=== PATIENT | female | born 1965 | race Hispanic/Latino ===

== ENCOUNTER 2019-01-26 10:12 | Inpatient (IN) | payer OTHER ==
--- OUTSIDE RECORDS SUMMARY | 2019-01-26 10:17 | XMS REPORT | Clinical Summary ---
:1965 Author Organization [facility] Address [address] [place] [address] Care Team Providers Name Role Phone Asked, No Pcp Primary Care Provider Unavailable Allergies No Known Allergies Medications Medication Sig Dispensed Refills Start End Date Status Date ferrous sulfate 325 Take 325 mg by 0 Active (65 FE) MG tablet mouth 2 (two) times a day. omeprazole Take 40 mg by 0 Active (PriLOSEC) 40 MG mouth nightly. capsule amoxicillin Take 500 mg by 0 Active (AMOXIL) 500 MG mouth every 8 capsule (eight) hours. metoclopramide Take 5 mg by 0 Active (REGLAN) 5 MG mouth 3 (three) tablet times a day. multivit-mins Take 1 tablet by 0 Active no.63/iron/folic mouth daily. (M-VIT ORAL) gabapentin Take 600 mg by 0 10/01/20 Discontinued (NEURONTIN) 300 mg mouth 3 (three) 18 capsule times a day. traMADol (ULTRAM) Take 50 mg by 0 10/01/20 Discontinued 50 mg tablet mouth every 8 18 (eight) hours as needed. insulin 70/30 NPH Inject 25 Units 0 10/01/20 Discontinued and regular human under the skin 2 18 (HumuLIN 70/30) 100 (two) times a unit/mL (70-30) day. injection insulin detemir Inject 25 Units 0 10/01/20 Discontinued U-100 (LEVEMIR) 100 under the skin 18 unit/mL injection nightly. acetaminophen Take 2 tablets 0 10/31/20 (TYLENOL) 325 MG (650 mg total) by 8 18 tablet mouth every 6 (six) hours as needed for mild pain for up to 30 days. gabapentin Take 1 capsule 90 capsule 0 10/31/20 (NEURONTIN) 300 mg (300 mg total) by 8 18 capsule mouth 3 (three) times a day for 30 days. metoprolol tartrate Take 1 tablet (50 60 tablet 0 10/31/20 (LOPRESSOR) 50 mg mg total) by 8 18 tablet mouth 2 (two) times a day for 30 days. NIFEdipine XL Take 1 tablet (60 60 tablet 0 10/31/20 (PROCARDIA XL) 60 mg total) by 8 18 MG 24 hr tablet mouth 2 (two) times a day for 30 days. polyethylene glycol Take 17 g by 30 packet 0 11/01/20 (MIRALAX) 17 gram mouth daily for 8 18 packet 30 days. sennosides-docusate Take 1 tablet by 30 tablet 0 10/31/20 sodium (SENOKOT-S) mouth nightly as 8 18 8.6-50 mg per needed for tablet constipation for up to 30 days. traMADol (ULTRAM) Take 1 tablet (50 21 tablet 0 10/08/20 50 mg tablet mg total) by 8 18 mouth every 8 (eight) hours as needed for severe pain for up to 7 days. ergocalciferol Take 1 capsule 4 capsule 0 11/07/19 (VITAMIN D2) 50,000 (50,000 Units 8 19 unit capsule total) by mouth once a week for 30 days. insulin detemir Inject 5 Units 1.5 mL 0 10/31/20 U-100 (LEVEMIR) 100 under the skin 8 18 unit/mL injection nightly for 30 days. furosemide (LASIX) Take 1 tablet (80 60 tablet 0 10/31/20 80 mg tablet mg total) by 8 18 mouth 2 (two) times a day for 30 days. Active Problems Problem Noted Date Chest pain 09/23/2018 EMEKA (acute kidney injury) 09/23/2018 Overview: Added automatically from request for surgery [id number] Encounters Date Type Specialty Care Team Description 09/29/2018 Anesthesia Event General Surgery Nohemi Walker CRNA 09/29/2018 Surgery General Surgery TRANSPOSITION OF OF ARTERIO VENOUS FISTULA LEFT ARM 09/23/2018 - Hospital Encounter General Internal JoseDat merritt Chest pain , unspecified type (Primary Dx); 10/01/2018 Rupert Partida MD EMEKA (acute kidney injury) (HCC); Siria Barnard Hyperkalemia; MD Elier Pleural effusion after 01/25/2018 Immunizations Name Dates Previously Given Next Due FLUCELVAX QUAD PF (0.5mL syringe) 10/01/2018 Social History Tobacco Use Types Packs/Day Years Used Date Former Smoker Cigarettes Quit: 09/03/2017 Smokeless Tobacco: Former User Alcohol Use Drinks/Week oz/Week Comments No Alcohol Habits Answer Date Recorded How often do you have a drink containing alcohol? Never 09/24/2018 How many drinks containing alcohol do you have on a typical Not asked day when you are drinking? How often do you have six or more drinks on one occasion? Not asked Sex Assigned at Date Recorded Not on file Job Start Date Occupation Industry Not on file Not on file Not on file Travel History Travel Start Travel End No recent travel history available. Last Filed Vital Signs Vital Sign Reading Time Taken Blood Pressure 118/58 10/01/2018 11:34 AM [employer] SAL[employer] REPRESENTATIVE Pulse 65 10/01/2018 11:34 AM [employer] REPRESENTATIVE Temperature 36 C (96.8 F) 10/01/2018 11:34 AM [employer] REPRESENTATIVE Respiratory Rate 16 10/01/2018 11:34 AM [employer] SAL[employer] REPRESENTATIVE Oxygen Saturation 91% 10/01/2018 11:34 AM [employer] REPRESENTATIVE Inhaled Oxygen Concentration - - Weight 73.8 kg (162 lb 12.8 oz) 10/01/2018 4:39 AM [employer] REPRESENTATIVE Height 154.9 cm (5' 1") 09/29/2018 7:56 AM [employer] REPRESENTATIVE Body Mass Index 30.76 10/01/2018 4:39 AM [employer] REPRESENTATIVE Plan of Treatment Health Maintenance Due Date Last Done Comments CERVICAL CANCER SCREENING 1985 BREAST CANCER SCREENING 2014 COLON CANCER SCREENING 2014 SHINGLES VACCINES (#1) 2014 INFLUENZA VACCINE Completed 10/01/2018, 10/16/2016 Implants Implanted Type Area Conservation Policy Analyst Device Shelf Model / Identifier Expiration Serial / Date Lot Catheter Dialysis Glidepath [id number] Symmetric Tip - [id number] Central N/ A: N/A BARD PERIPHERAL [id number] / Implanted: 09/26/2018 (Quantity not on file) Venous VASCULAR / Catheters Procedures Procedure Name Priority Date/Time Associated Comments Diagnosis POC GLUCOSE Routine 10/01/2018 11:30 Results for this AM [employer] REPRESENTATIVE procedure are in the results section. POC GLUCOSE Routine 09/30/2018 9:46 Results for this PM [employer] REPRESENTATIVE procedure are in the results section. POC GLUCOSE Routine 09/30/2018 4:51 Results for this PM [employer] REPRESENTATIVE procedure are in the results section. POC GLUCOSE Routine 09/30/2018 12:55 Results for this PM [employer] REPRESENTATIVE procedure are in the results section. HEMODIALYSIS Routine 09/30/2018 8:28 AM [employer] REPRESENTATIVE POC GLUCOSE Routine 09/30/2018 8:05 Results for this AM [employer] REPRESENTATIVE procedure are in the results section. POC GLUCOSE Routine 09/29/2018 9:13 Results for this PM [employer] REPRESENTATIVE procedure are in the results section. POC GLUCOSE Routine 09/29/2018 5:01 Results for this PM [employer] REPRESENTATIVE procedure are in the results section. POC GLUCOSE Routine 09/29/2018 12:41 Results for this PM [employer] SAL[employer] REPRESENTATIVE procedure are in the results section. ANESTHESIA PERIPHERAL Routine 09/29/2018 12:18 BLOCK PM [employer] REPRESENTATIVE Procedure Note - Annalee Fisher MD - 09/29/2018 12:18 PM [employer] REPRESENTATIVE Peripheral Block Performed by: Annalee Fisher MD Authorized by: Annalee Fisher MD Patient Location: Pre-op Start Time: 09/29/2018 8:14 AM End Time: 09/29/2018 8:27 AM Reason for Block: at surgeon's request Staff: Anesthesiologist: Annalee Fisher MD Resident/SENIOR BILLING CONSULTANT/AA: Nohemi Walker CRNA Performed by: Anesthesiologist Preprocedure: patient identified, IV checked, site and side verified, risks and benefits discussed, procedure verified, surgical consent complete, patient position confirmed, monitors and equipment checked, pre-op evaluation complete and site marked Time Out Performed: 09/29/2018 8:14 AM Peripheral Nerve Block: Patient Position: Right lateral decubitus Prep: ChloraPrep and patient draped Monitoring: Blood pressure monitoring, continuous pulse oximetry and heart rate Block Type: Supraclavicular Laterality: Left Injection Technique: Single injection Procedures: ultrasound guided Ultrasound documentation: Images saved on portable media Local Infiltration (See MAR for details): Ropivacaine Needle: Needle Type: Pajunk Needle Gauge: 21 G Needle Length: 10 cm Assessment: Injection Assessment: Visualized needle/local anesthetic surrounding nerve , visualized pertinent vascular structures and nerves, needle tip visualized at all times during injection of medication, no symptoms of intraneural/intravenous injection and intermittent aspiration during local anesthetic administration Paresthesia Pain: None Heart Rate Change: No Slow Fractionated Injection: Yes Block outcome: No apparent complications, patient comfortable and patient tolerated procedure well POC GLUCOSE Routine 09/29/2018 11:11 AM [employer] SAL[employer] REPRESENTATIVE ESTIMATED GFR Routine 09/29/2018 5:20 AM [employer] SAL[employer] REPRESENTATIVE MAGNESIUM LEVEL Routine 09/29/2018 5:20 AM [employer] SAL[employer] REPRESENTATIVE PHOSPHORUS LEVEL Routine 09/29/2018 5:20 AM [employer] SAL[employer] REPRESENTATIVE TYPE AND SCREEN Routine 09/29/2018 5:20 AM [employer] SAL[employer] REPRESENTATIVE IONIZED CALCIUM Routine 09/29/2018 5:20 AM [employer] SAL[employer] REPRESENTATIVE HC COMPLETE BLD COUNT W/AUTO Routine 09/29/2018 5:20 AM [employer] SAL[employer] REPRESENTATIVE Results for this DIFF procedure are in the results section. BASIC METABOLIC PANEL Routine 09/29/2018 5:20 AM [employer] SAL[employer] REPRESENTATIVE POC GLUCOSE Routine 09/28/2018 9:03 PM [employer] SAL[employer] REPRESENTATIVE POC GLUCOSE Routine 09/28/2018 4:34 PM [employer] SAL[employer] REPRESENTATIVE US ABDOMEN COMPLETE Routine 09/28/2018 4:23 PM [employer] SAL[employer] REPRESENTATIVE US VEIN MAPPING UPPER Routine 09/28/2018 4:23 PM [employer] SAL[employer] REPRESENTATIVE Results for this EXTREMITY BILATERAL procedure are in the results section. POC GLUCOSE Routine 09/28/2018 1:07 PM [employer] SAL[employer] REPRESENTATIVE HEMODIALYSIS Routine 09/28/2018 9:22 AM [employer] SAL[employer] REPRESENTATIVE POC GLUCOSE Routine 09/28/2018 7:27 AM [employer] REPRESENTATIVE ESTIMATED GFR Routine 09/28/2018 5:15 AM [employer] SAL[employer] REPRESENTATIVE HC COMPLETE BLD COUNT W/AUTO Routine 09/28/2018 5:15 AM [employer] SAL[employer] REPRESENTATIVE Results for this DIFF procedure are in the results section. BASIC METABOLIC PANEL Routine 09/28/2018 5:15 AM [employer] SAL[employer] REPRESENTATIVE POC GLUCOSE Routine 09/27/2018 8:11 PM [employer] SAL[employer] REPRESENTATIVE POC GLUCOSE Routine 09/27/2018 4:23 PM [employer] SAL[employer] REPRESENTATIVE STREP SCREEN CULTURE Routine 09/27/2018 2:40 PM [employer] SAL[employer] REPRESENTATIVE GROUP A STREP, RAPID ANTIGEN Routine 09/27/2018 2:40 PM [employer] REPRESENTATIVE POC GLUCOSE Routine 09/27/2018 11:37 AM [employer] REPRESENTATIVE HEMODIALYSIS Routine 09/27/2018 7:58 AM [employer] REPRESENTATIVE POC GLUCOSE Routine 09/27/2018 7:38 AM [employer] REPRESENTATIVE ESTIMATED GFR Routine 09/27/2018 5:30 AM [employer] SAL[employer] REPRESENTATIVE BASIC METABOLIC PANEL Routine 09/27/2018 5:30 AM [employer] SAL[employer] REPRESENTATIVE HC COMPLETE BLD COUNT W/AUTO Routine 09/27/2018 5:30 AM [employer] SAL[employer] REPRESENTATIVE Results for this DIFF procedure are in the results section. POC GLUCOSE Routine 09/26/2018 9:09 PM [employer] SAL[employer] REPRESENTATIVE POC GLUCOSE Routine 09/26/2018 5:25 PM [employer] SAL[employer] REPRESENTATIVE US GUIDED VASCULAR ACCESS Routine 09/26/2018 5:01 PM [employer] SAL[employer] REPRESENTATIVE IR TUNNELED DIALYSIS Routine 09/26/2018 5:01 PM [employer] REPRESENTATIVE Results for this CATHETER PLACEMENT procedure are in the results section. POC GLUCOSE Routine 09/26/2018 11:20 AM [employer] SAL[employer] REPRESENTATIVE POC GLUCOSE Routine 09/26/2018 7:51 AM [employer] SAL[employer] REPRESENTATIVE ESTIMATED GFR Routine 09/26/2018 6:00 AM [employer] SAL[employer] REPRESENTATIVE BASIC METABOLIC PANEL Routine 09/26/2018 6:00 AM [employer] REPRESENTATIVE HC COMPLETE BLD COUNT W/AUTO Routine 09/26/2018 6:00 AM [employer] REPRESENTATIVE Results for this DIFF procedure are in the results section. SEDIMENTATION RATE Routine 09/26/2018 6:00 AM [employer] SAL[employer] REPRESENTATIVE DNA AB SCREEN Routine 09/26/2018 6:00 AM [employer] REPRESENTATIVE HEMODIALYSIS Routine 09/26/2018 5:41 AM [employer] REPRESENTATIVE POC GLUCOSE Routine 09/25/2018 8:52 PM [employer] REPRESENTATIVE POC GLUCOSE Routine 09/25/2018 4:53 PM [employer] REPRESENTATIVE URINALYSIS SCREEN AND Routine 09/25/2018 3:52 PM [employer] REPRESENTATIVE Results for this MICROSCOPY, WITH REFLEX TO procedure are in the CULTURE results section. CREATININE LEVEL, URINE, Routine 09/25/2018 3:52 PM [employer] REPRESENTATIVE Results for this RANDOM procedure are in the results section. PROTEIN, URINE, RANDOM Routine 09/25/2018 3:52 PM [employer] REPRESENTATIVE URINE CULTURE Routine 09/25/2018 3:52 PM [employer] REPRESENTATIVE POC GLUCOSE Routine 09/25/2018 12:15 PM [employer] SAL[employer] REPRESENTATIVE NM MYOCARDIAL PERFUSION REST Routine 09/25/2018 11:55 AM [employer] REPRESENTATIVE Results for this STRESS 1 DAY procedure are in the results section. CV STRESS TEST NUCLEAR Routine 09/25/2018 11:55 AM [employer] REPRESENTATIVE Results for this CARDIO procedure are in the results section. POC GLUCOSE Routine 09/25/2018 8:55 AM [employer] SAL[employer] REPRESENTATIVE POC GLUCOSE Routine 09/25/2018 8:00 AM [employer] REPRESENTATIVE ESTIMATED GFR Routine 09/25/2018 5:45 AM [employer] REPRESENTATIVE HEPATITIS B CORE ANTIBODY Routine 09/25/2018 5:45 AM [employer] REPRESENTATIVE Results for this TOTAL procedure are in the results section. HEPATITIS B SURFACE ANTIBODY Routine 09/25/2018 5:45 AM [employer] SAL[employer] REPRESENTATIVE HEPATITIS B SURFACE ANTIGEN Routine 09/25/2018 5:45 AM [employer] SAL[employer] REPRESENTATIVE CBC WITH PLATELET AND Routine 09/25/2018 5:45 AM [employer] REPRESENTATIVE Results for this DIFFERENTIAL procedure are in the results section. BASIC METABOLIC PANEL Routine 09/25/2018 5:45 AM [employer] REPRESENTATIVE LIPID PANEL Routine 09/25/2018 5:45 AM [employer] SAL[employer] REPRESENTATIVE HEMOGLOBIN A1C Routine 09/25/2018 5:45 AM [employer] SAL[employer] REPRESENTATIVE POC GLUCOSE Routine 09/24/2018 9:35 PM [employer] REPRESENTATIVE POC GLUCOSE Routine 09/24/2018 4:47 PM [employer] SAL[employer] REPRESENTATIVE POC GLUCOSE Routine 09/24/2018 12:01 PM [employer] SAL[employer] REPRESENTATIVE ECHOCARDIOGRAM 2D COMPLETE W Routine 09/24/2018 11:33 AM [employer] SAL[employer] REPRESENTATIVE Results for this MMODE SPECTRAL COLOR DOPPLER procedure are in the (08023) results section. ESTIMATED GFR Routine 09/24/2018 10:15 AM [employer] SAL[employer] REPRESENTATIVE TOTAL IRON BINDING CAPACITY Routine 09/24/2018 10:15 AM [employer] SAL[employer] REPRESENTATIVE HC COMPLETE BLD COUNT W/AUTO Routine 09/24/2018 10:15 AM [employer] SAL[employer] REPRESENTATIVE Results for this DIFF procedure are in the results section. COMPREHENSIVE METABOLIC Routine 09/24/2018 10:15 AM [employer] REPRESENTATIVE Results for this PANEL procedure are in the results section. POC GLUCOSE Routine 09/24/2018 9:27 AM [employer] SAL[employer] REPRESENTATIVE TROPONIN Routine 09/24/2018 6:00 AM [employer] SAL[employer] REPRESENTATIVE TROPONIN Timed 09/24/2018 1:40 AM [employer] SAL[employer] REPRESENTATIVE US RENAL STAT 09/23/2018 10:21 PM [employer] SAL[employer] REPRESENTATIVE JENA TITER Routine 09/23/2018 10:05 PM [employer] REPRESENTATIVE ANTI-NEUTROPHILIC Routine 09/23/2018 10:05 PM [employer] REPRESENTATIVE Results for this CYTOPLASMIC ABS PANEL procedure are in the results section. C4 COMPLEMENT COMPONENT Routine 09/23/2018 10:05 PM [employer] REPRESENTATIVE C3 COMPLEMENT COMPONENT Routine 09/23/2018 10:05 PM [employer] REPRESENTATIVE JENA Routine 09/23/2018 10:05 PM [employer] SAL[employer] REPRESENTATIVE POTASSIUM LEVEL STAT 09/23/2018 10:05 PM [employer] SAL[employer] REPRESENTATIVE XR CHEST 2 VW STAT 09/23/2018 8:46 PM [employer] REPRESENTATIVE URINALYSIS SCREEN AND Routine 09/23/2018 8:33 PM [employer] REPRESENTATIVE Results for this MICROSCOPY, WITH REFLEX TO procedure are in the CULTURE results section. URINE CULTURE Routine 09/23/2018 8:20 PM [employer] SAL[employer] REPRESENTATIVE HCG QUALITATIVE, SERUM STAT 09/23/2018 8:15 PM [employer] REPRESENTATIVE Results for this SCREEN procedure are in the results section. ESTIMATED GFR STAT 09/23/2018 8:12 PM [employer] SAL[employer] REPRESENTATIVE B NATRIURETIC PEPTIDE STAT 09/23/2018 8:12 PM [employer] REPRESENTATIVE LIPASE LEVEL STAT 09/23/2018 8:12 PM [employer] REPRESENTATIVE TROPONIN STAT 09/23/2018 8:12 PM [employer] SAL[employer] REPRESENTATIVE CREATINE KINASE, TOTAL (CPK) STAT 09/23/2018 8:12 PM [employer] REPRESENTATIVE COMPREHENSIVE METABOLIC STAT 09/23/2018 8:12 PM [employer] REPRESENTATIVE Results for this PANEL procedure are in the results section. PARTIAL THROMBOPLASTIN TIME STAT 09/23/2018 8:12 PM [employer] REPRESENTATIVE Results for this (PTT) procedure are in the results section. PROTHROMBIN TIME WITH INR STAT 09/23/2018 8:12 PM [employer] REPRESENTATIVE HC COMPLETE BLD COUNT W/AUTO STAT 09/23/2018 8:12 PM [employer] REPRESENTATIVE Results for this DIFF procedure are in the results section. ECG ED PRELIMINARY Routine 09/23/2018 8:02 PM [employer] REPRESENTATIVE Results for this INTERPRETATION procedure are in the results section. ECG 12-LEAD STAT 09/23/2018 7:54 PM [employer] REPRESENTATIVE after 01/25/2018 Results POC glucose (10/01/2018 11:30 AM [employer] REPRESENTATIVE)Only the most recent of30 resultswithin the time period is included. POC glucose 149 (H) 65 - 99 mg/dL [facility] Comment: HOSPITAL RN Notified Meter ID: [id number] Treatment Manager: Juan Pablo Squires Performing Organization Address City/State/Zipcode Phone Number [facility] DEPARTMENT OF PATHOLOGY [address] [place] [address] AND GENOMIC MEDICINE [facility] [address] Estimated GFR (09/29/2018 5:20 AM [employer] REPRESENTATIVE)Only the most recent of7 resultswithin the time period is included. Estimated GFR 21 (A) mL/min/1.73 m2 [facility] Comment: [facility] CatergoryUnitsInterpretation G1 >=90 Normal or high G2 60-89Mildly decreased [id number] to moderately decreased Q3n11-73Vkopserlwg to severely decreased G4 15-29Severely decreased G5 <15Kidney failure The eGFR was calculated using the Chronic Kidney Disease Epidemiology Collaboration (CKD-EPI) equation. Interpretation is based on recommendations of the National Kidney Foundation-Kidney Disease Outcomes Quality Initiative (NKF-KDOQI) published in 2014. Specimen Plasma specimen Performing Organization Address City/State/Zipcode Phone Number [facility] DEPARTMENT OF PATHOLOGY [address] [place] [address] AND GENOMIC MEDICINE [facility] [address] [place] [address] HOSPITAL CBC with platelet and differential (09/29/2018 5:20 AM [employer] REPRESENTATIVE)Only the most recent of7 resultswithin the time period is included. WBC 8.2 4.5 - 11.0 k/uL [facility] RBC 2.81 (L) 4.20 - 5.50 m/uL [facility] HGB 8.0 (L) 12.0 - 16.0 g/dL [facility] HCT 25.9 (L) 37.0 - 47.0 % [facility] MCV 92.2 82.0 - 100.0 fL [facility] MCH 28.5 27.0 - 34.0 pg [facility] MCHC 30.9 (L) 31.0 - 37.0 g/dL [facility] RDW - SD 49.0 37.0 - 55.0 fL [facility] MPV 12.6 (H) 6.9 - 11.0 fL [facility] Platelet count 182 150 - 400 K/uL [facility] Nucleated RBC 0.40 /100 WBC [facility] Neutrophils 53.5 39.0 - 69.0 % [facility] Lymphocytes 32.8 25.0 - 45.0 % [facility] Monocytes 9.7 0.0 - 10.0 % [facility] Eosinophils 2.3 0.0 - 5.0 % [facility] Basophils 0.6 0.0 - 1.0 % [facility] Immature granulocytes 1.1 (H) 0.0 - 1.0 % [facility] Specimen Blood Performing Organization Address City/[facility]/Zipcode Phone Number [facility] DEPARTMENT OF PATHOLOGY [address] [place] [address] [place] [address] HOSPITAL Type and screen (09/29/2018 5:20 AM [employer] REPRESENTATIVE) ABO grouping A [facility] Rh type POS [facility] Antibody screen (gel) NEG [facility] Specimen Blood Performing Organization Address City/[facility]/Zipcode Phone Number [facility] DEPARTMENT OF PATHOLOGY [address] [place] [address] [place] [address] HOSPITAL Phosphorus level (09/29/2018 5:20 AM [employer] REPRESENTATIVE) Phosphorus 3.1 2.4 - 4.5 mg/dL [facility] Specimen Plasma specimen Performing Organization Address City/[facility]/Zipcode Phone Number [facility] DEPARTMENT OF PATHOLOGY [address] [place] [address] [place] [address] HOSPITAL Magnesium level (09/29/2018 5:20 AM [employer] REPRESENTATIVE) Magnesium 1.8 1.6 - 2.6 mg/dL [facility] Specimen Plasma specimen Performing Organization Address City/[facility]/Zipcode Phone Number [facility] DEPARTMENT OF PATHOLOGY [address] [place] [address] [place] [address] HOSPITAL Ionized calcium (09/29/2018 5:20 AM [employer] REPRESENTATIVE) pH 7.44 [facility] Ionized calcium 1.07 (L) 1.11 - 1.32 mmol/L [facility] Specimen Plasma specimen Performing Organization Address City/[facility]/Zipcode Phone Number [facility] DEPARTMENT OF PATHOLOGY [address] [place] [address] Basic metabolic panel (09/29/2018 5:20 AM [employer] REPRESENTATIVE)Only the most recent of5 resultswithin the time period is included. Sodium 142 135 - 148 mEq/L [facility] Potassium 4.1 3.5 - 5.0 mEq/L [facility] Chloride 104 98 - 112 mEq/L [facility] CO2 25 24 - 31 mEq/L [facility] Anion gap 13@ANIO 7 - 15 mEq/L [facility] BUN 21 (H) 6 - 20 mg/dL [facility] Creatinine 2.49 (H) 0.50 - 0.90 mg/dL [facility] Glucose 112 (H) 65 - 99 mg/dL [facility] Calcium 8.6 8.3 - 10.2 mg/dL [facility] Specimen Plasma specimen Performing Organization Address City/State/Zipcode Phone Number [facility] DEPARTMENT OF PATHOLOGY [address] [place] [address] AND GENOMIC MEDICINE [facility] [address] US Abdomen Complete (09/28/2018 4:23 PM [employer] REPRESENTATIVE) Narrative Performed At EXAM: US ABDOMEN COMPLETE RADIANT CLINICAL DATA:Abd painunspecified, RLQ pain TECHNIQUE: Sonographic evaluation of the abdomen was performed. COMPARISON: NONE. IMPRESSION: 1.Fatty liver. The liver is normal size. There are no discrete lesions. 2.The common bile duct is dilated measuring up to 11.6 mm. Possible post cholecystectomy change but limited visualization centrally and if concern for obstructing stone or mass, MRCP could provide more definitive evaluation. There is no evidence of intrahepatic biliary ductal dilation The common bile duct has normal caliber. 3.The portal vein is patent with normal hepatopetal flow. 4.Limited views of the pancreas are unremarkable. 5.The kidneys are normal size. The kidneys have normal echogenicity. Vascular flow is unremarkable. There is no evidence of hydronephrosis, perinephric fluid, mass or calculus. 6.The spleen has normal echogenicity. The spleen is normal size. 7.Small right pleural effusion. No evidence of ascites. 8.Visualized aorta and IVC are unremarkable. [id number] Procedure Note Interface, Radiology Results Incoming - 09/28/2018 4:43 PM LEATHER GOODS SALES REPRESENTATIVE EXAM: US ABDOMEN COMPLETE CLINICAL DATA: Abd pain unspecified, RLQ pain TECHNIQUE: Sonographic evaluation of the abdomen was performed. COMPARISON: NONE. IMPRESSION: 1. Fatty liver. The liver is normal size. There are no discrete lesions. 2. The common bile duct is dilated measuring up to 11.6 mm. Possible post cholecystectomy change but limited visualization centrally and if concern for obstructing stone or mass, MRCP could provide more definitive evaluation. There is no evidence of intrahepatic biliary ductal dilation The common bile duct has normal caliber. 3. The portal vein is patent with normal hepatopetal flow. 4. Limited views of the pancreas are unremarkable. 5. The kidneys are normal size. The kidneys have normal echogenicity. Vascular flow is unremarkable. There is no evidence of hydronephrosis, perinephric fluid, mass or calculus. 6. The spleen has normal echogenicity. The spleen is normal size. 7. Small right pleural effusion. No evidence of ascites. 8. Visualized aorta and IVC are unremarkable. [id number] Performing Organization Address City/State/Zipcode Phone Number [facility] [address] [place] [address] Us vein mapping upper extremity (09/28/2018 4:23 PM LEATHER GOODS SALES REPRESENTATIVE) Narrative Performed At [facility] EXAM: Bilateral upper extremity vein mapping HISTORY: AV fistula planning TECHNIQUE: Bilateral upper extremity venous duplex ultrasound with color flow and Doppler imaging obtained for vein mapping. IMPRESSION: 1.There is no deep venous or superficial vein thrombus in the upper extremities. The right and left internal jugular, subclavian, axillary, brachial, radial, ulnar, basilic, and cephalic veins are patent with no visible thrombus. 2.Bilateral upper extremity vein mapping was performed and was the following: RIGHT ARM--Size(mm)--DEPTH FROM SKIN(mm) Above the antecubital fossa: Brachial at antecubital:3 mm -- 5 mm Median antecubital:2 mm -- 6 mm Cephalic antecubital:3 mm -- 7 mm Cephalic mid arm:3 mm -- 7 mm Cephalic proximal:4 mm -- 5 mm Basilic antecubital:4 mm -- 11 mm Basilic mid arm:5 mm -- 18 mm Basilic proximal:5 mm -- 19 mm Below antecubital fossa: Cephalic wrist:2 mm -- 3 mm Cephalic mid forearm:2 mm -- 7 mm Basilic wrist:1 mm -- 1 mm Basilic mid forearm:2 mm -- 9 mm Arteries--Size(mm): Radial artery:3 mm Ulnar artery:2 mm Brachial artery:2 mm LEFT ARM--Size(mm)--DEPTH FROM SKIN(mm) Above the antecubital fossa: Brachial at antecubital:3 mm -- 10 mm Median antecubital:2 mm -- 4 mm Cephalic antecubital:3 mm -- 2 mm Cephalic mid arm:2 mm -- 4 mm Cephalic proximal:2 mm -- 8 mm Basilic antecubital:4 mm -- 11 mm Basilic mid arm:5 mm -- 14 mm Basilic proximal:4 mm -- 18 mm Below antecubital fossa: Cephalic wrist:3 mm -- 4 mm Cephalic mid forearm:2 mm -- 4 mm Basilic wrist:2 mm -- 2 mm Basilic mid forearm:2 mm -- 6 mm Arteries--Size(mm): Radial artery:5 mm Ulnar artery:1 mm Brachial artery:2 mm [id number] Procedure Note Hm Interface, Radiology Results Incoming - 09/28/2018 4:50 PM LEATHER GOODS SALES REPRESENTATIVE EXAM: Bilateral upper extremity vein mapping HISTORY: AV fistula planning TECHNIQUE: Bilateral upper extremity venous duplex ultrasound with color flow and Doppler imaging obtained for vein mapping. IMPRESSION: 1. There is no deep venous or superficial vein thrombus in the upper extremities. The right and left internal jugular, subclavian, axillary, brachial , radial, ulnar, basilic, and cephalic veins are patent with no visible thrombus. 2. Bilateral upper extremity vein mapping was performed and was the following: RIGHT ARM--Size(mm)--DEPTH FROM SKIN(mm) Above the antecubital fossa: Brachial at antecubital: 3 mm -- 5 mm Median antecubital: 2 mm -- 6 mm Cephalic antecubital: 3 mm -- 7 mm Cephalic mid arm: 3 mm -- 7 mm Cephalic proximal: 4 mm -- 5 mm Basilic antecubital: 4 mm -- 11 mm Basilic mid arm: 5 mm -- 18 mm Basilic proximal: 5 mm -- 19 mm Below antecubital fossa: Cephalic wrist: 2 mm -- 3 mm Cephalic mid forearm: 2 mm -- 7 mm Basilic wrist: 1 mm -- 1 mm Basilic mid forearm: 2 mm -- 9 mm Arteries--Size(mm): Radial artery: 3 mm Ulnar artery: 2 mm Brachial artery: 2 mm LEFT ARM--Size(mm)--DEPTH FROM SKIN(mm) Above the antecubital fossa: Brachial at antecubital: 3 mm -- 10 mm Median antecubital: 2 mm -- 4 mm Cephalic antecubital: 3 mm -- 2 mm Cephalic mid arm: 2 mm -- 4 mm Cephalic proximal: 2 mm -- 8 mm Basilic antecubital: 4 mm -- 11 mm Basilic mid arm: 5 mm -- 14 mm Basilic proximal: 4 mm -- 18 mm Below antecubital fossa: Cephalic wrist: 3 mm -- 4 mm Cephalic mid forearm: 2 mm -- 4 mm Basilic wrist: 2 mm -- 2 mm Basilic mid forearm: 2 mm -- 6 mm Arteries--Size(mm): Radial artery: 5 mm Ulnar artery: 1 mm Brachial artery: 2 mm [facility]-[id number] Performing Organization Address City/[facility]/Zipcode Phone Number [facility] [address] [place] [address] Group A strep, rapid antigen (09/27/2018 2:40 PM LEATHER GOODS SALES REPRESENTATIVE) Group A strep, rapid Negative for Group A Streptococcus antigen. [facility] SUGAR antigen result Comment: [facility]IN [facility] Specimen Information Specimen Source: Throat Specimen Site: Not otherwise specified Specimen Throat - Not otherwise specified Performing Organization Address City/[facility]/Zipcode Phone Number [facility] DEPARTMENT OF PATHOLOGY [address] [place] [address] AND [facility] [id number] [place] [address] Strep screen culture (09/27/2018 2:40 PM LEATHER GOODS SALES REPRESENTATIVE) Strep screen culture No beta hemolytic Streptococci isolated [facility] isolate Comment: HOSPITAL Specimen Information Specimen Source: Throat Specimen Site: Not otherwise specified Specimen Throat - Not otherwise specified Performing Organization Address City/[facility]/Zipcode Phone Number [facility] DEPARTMENT OF PATHOLOGY AND [address] [place] [address] [address] IR Tunneled Dialysis Catheter Placement (09/26/2018 5:01 PM LEATHER GOODS SALES REPRESENTATIVE) Narrative Performed At [facility] Procedure: Right internal jugular vein tunnel dialysis catheter placement. Performing Radiologist: Fidel Cain MD Assistants: None Anesthesia Type: Under physician supervision, Versed and fentanyl were administered intravenously for moderate sedation. Pulse oximetry, heart rate, and blood pressure were continuously monitored by independent trained observer.The physician spent 10 minutes [id number] sedation time with the patient.Lidocaine 1% was used for local anesthesia. Preprocedure Diagnosis: End-stage renal disease Post Procedure Diagnosis: Same Technique: Written informed consent was obtained prior to the procedure. The patient was brought to the fluoroscopy suite and placed supine on the table. The right neck and upper chest were prepped and draped in usual sterile fashion. All elements of maximal sterile barrier technique were utilized. 1% lidocaine was used for local anesthesia. Under real-time ultrasound guidance, a 21-gauge micropuncture needle was advanced into the right internal jugular vein.Through the needle, a 0.018 inch mandril wire was advanced centrally. The needle was exchanged for a 5 Trinidadian micropuncture introducer sheath over the wire. The wire and inner dilator were removed. A 0.035 inch Amplatz wire was advanced through the sheath into the inferior vena cava. The right upper chest was then anesthetized using 1% lidocaine with epinephrine. A small incision was made. A 23 cm (tip to cuff) GlidePath tunneled dialysis catheter was then tunneled from the incision to the venotomy site. The catheter was placed into the superior vena cava through a peel-away sheath. The catheter tip was placed over the right atrium under real time fluoroscopic visualization.All ports were tested and demonstrated adequate flow. The catheter was packed with heparin and secured to the skin using suture.A sterile occlusive dressing was applied. Radiation Dose: Ka,r=4.8 mGy Complications: None Specimens Removed: None Estimated Blood Loss: Less than 1 mL Blood/Blood Products Administered: None Grafts/Implants: As described in the above report. Impression: 1. Ultrasound shows an anechoic and compressible right internal jugular vein. 2. Uncomplicated right tunneled dialysis catheter placement. The new catheter is ready for use. [id number] Procedure Note Interface, Radiology Results Incoming - 09/27/2018 12:49 PM LEATHER GOODS SALES REPRESENTATIVE Procedure: Right internal jugular vein tunnel dialysis catheter placement. Performing Radiologist: Fidel Cain MD Assistants: None Anesthesia Type: Under physician supervision, Versed and fentanyl were administered intravenously for moderate sedation. Pulse oximetry, heart rate, and blood pressure were continuously monitored by independent trained observer. The physician spent 10 minutes brqa-tv-huhs sedation time with the patient. Lidocaine 1% was used for local anesthesia. Preprocedure Diagnosis: End-stage renal disease Post Procedure Diagnosis: Same Technique: Written informed consent was obtained prior to the procedure. The patient was brought to the fluoroscopy suite and placed supine on the table. The right neck and upper chest were prepped and draped in usual sterile fashion. All elements of maximal sterile barrier technique were utilized. 1% lidocaine was used for local anesthesia. Under real-time ultrasound guidance, a 21-gauge micropuncture needle was advanced into the right internal jugular vein. Through the needle, a 0.018 inch mandril wire was advanced centrally. The needle was exchanged for a 5 Trinidadian micropuncture introducer sheath over the wire. The wire and inner dilator were removed. A 0.035 inch Amplatz wire was advanced through the sheath into the inferior vena cava. The right upper chest was then anesthetized using 1% lidocaine with epinephrine. A small incision was made. A 23 cm (tip to cuff) GlidePath tunneled dialysis catheter was then tunneled from the incision to the venotomy site. The catheter was placed into the superior vena cava through a peel-away sheath. The catheter tip was placed over the right atrium under real time fluoroscopic visualization. All ports were tested and demonstrated adequate flow. The catheter was packed with heparin and secured to the skin using suture. A sterile occlusive dressing was applied. Radiation Dose: Ka,r=4.8 mGy Complications: None Specimens Removed: None Estimated Blood Loss: Less than 1 mL Blood/Blood Products Administered: None Grafts/Implants: As described in the above report. Impression: 1. Ultrasound shows an anechoic and compressible right internal jugular vein. 2. Uncomplicated right tunneled dialysis catheter placement. The new catheter is ready for use. [id number] Performing Organization Address City/State/Zipcode Phone Number [facility] [address] [place] [address] US Guided Vascular Access (09/26/2018 5:01 PM LEATHER GOODS SALES REPRESENTATIVE) Narrative Performed At [facility] Procedure: Right internal jugular vein tunnel dialysis catheter placement. Performing Radiologist: Fidel Cain MD Assistants: None Anesthesia Type: Under physician supervision, Versed and fentanyl were administered intravenously for moderate sedation. Pulse oximetry, heart rate, and blood pressure were continuously monitored by independent trained observer.The physician spent 10 minutes [id number] sedation time with the patient.Lidocaine 1% was used for local anesthesia. Preprocedure Diagnosis: End-stage renal disease Post Procedure Diagnosis: Same Technique: Written informed consent was obtained prior to the procedure. The patient was brought to the fluoroscopy suite and placed supine on the table. The right neck and upper chest were prepped and draped in usual sterile fashion. All elements of maximal sterile barrier technique were utilized. 1% lidocaine was used for local anesthesia. Under real-time ultrasound guidance, a 21-gauge micropuncture needle was advanced into the right internal jugular vein.Through the needle, a 0.018 inch mandril wire was advanced centrally. The needle was exchanged for a 5 Trinidadian micropuncture introducer sheath over the wire. The wire and inner dilator were removed. A 0.035 inch Amplatz wire was advanced through the sheath into the inferior vena cava. The right upper chest was then anesthetized using 1% lidocaine with epinephrine. A small incision was made. A 23 cm (tip to cuff) GlidePath tunneled dialysis catheter was then tunneled from the incision to the venotomy site. The catheter was placed into the superior vena cava through a peel-away sheath. The catheter tip was placed over the right atrium under real time fluoroscopic visualization.All ports were tested and demonstrated adequate flow. The catheter was packed with heparin and secured to the skin using suture.A sterile occlusive dressing was applied. Radiation Dose: Ka,r=4.8 mGy Complications: None Specimens Removed: None Estimated Blood Loss: Less than 1 mL Blood/Blood Products Administered: None Grafts/Implants: As described in the above report. Impression: 1. Ultrasound shows an anechoic and compressible right internal jugular vein. 2. Uncomplicated right tunneled dialysis catheter placement. The new catheter is ready for use. [id number] Procedure Note [facility], Radiology Results Incoming - 09/27/2018 12:50 PM LEATHER GOODS SALES REPRESENTATIVE Procedure: Right internal jugular vein tunnel dialysis catheter placement. Performing Radiologist: Fidel Cain MD Assistants: None Anesthesia Type: Under physician supervision, Versed and fentanyl were administered intravenously for moderate sedation. Pulse oximetry, heart rate, and blood pressure were continuously monitored by independent trained observer. The physician spent 10 minutes rbcm-ty-elor sedation time with the patient. Lidocaine 1% was used for local anesthesia. Preprocedure Diagnosis: End-stage renal disease Post Procedure Diagnosis: Same Technique: Written informed consent was obtained prior to the procedure. The patient was brought to the fluoroscopy suite and placed supine on the table. The right neck and upper chest were prepped and draped in usual sterile fashion. All elements of maximal sterile barrier technique were utilized. 1% lidocaine was used for local anesthesia. Under real-time ultrasound guidance, a 21-gauge micropuncture needle was advanced into the right internal jugular vein. Through the needle, a 0.018 inch mandril wire was advanced centrally. The needle was exchanged for a 5 Trinidadian micropuncture introducer sheath over the wire. The wire and inner dilator were removed. A 0.035 inch Amplatz wire was advanced through the sheath into the inferior vena cava. The right upper chest was then anesthetized using 1% lidocaine with epinephrine. A small incision was made. A 23 cm (tip to cuff) GlidePath tunneled dialysis catheter was then tunneled from the incision to the venotomy site. The catheter was placed into the superior vena cava through a peel-away sheath. The catheter tip was placed over the right atrium under real time fluoroscopic visualization. All ports were tested and demonstrated adequate flow. The catheter was packed with heparin and secured to the skin using suture. A sterile occlusive dressing was applied. Radiation Dose: Ka,r=4.8 mGy Complications: None Specimens Removed: None Estimated Blood Loss: Less than 1 mL Blood/Blood Products Administered: None Grafts/Implants: As described in the above report. Impression: 1. Ultrasound shows an anechoic and compressible right internal jugular vein. 2. Uncomplicated right tunneled dialysis catheter placement. The new catheter is ready for use. [id number] Performing Organization Address City/State/Zipcode Phone Number [facility] [address] [place] [address] DNA Ab screen (09/26/2018 6:00 AM LEATHER GOODS SALES REPRESENTATIVE) DNA Ab screen Not Detected Not-Detected [facility] Specimen Blood Performing Organization Address City/[facility] Phone Number [facility] DEPARTMENT OF PATHOLOGY AND [address] [place] [address] [facility] [address] [place] [address] Sedimentation rate (09/26/2018 6:00 AM LEATHER GOODS SALES REPRESENTATIVE) Sedimentation rate 88 (H) 0 - 20 mm/hr [facility] Specimen Blood Performing Organization Address [facility] Phone Number [facility] DEPARTMENT OF PATHOLOGY [address] [place] [address] AND [facility] [id number] [place] [address] HOSPITAL Urinalysis screen and microscopy, with reflex to culture (09/25/2018 3:52 PM LEATHER GOODS SALES REPRESENTATIVE)Only the most recent of2 resultswithin the time period is included. Specimen site Clean catch [facility] Color, UA Yellow [facility] Appearance, UA Clear [facility] Specific gravity, UA 1.012 1.001 - 1.030 [facility] pH, UA 6.0 5.0 - 9.0 [facility] Protein, UA 3+ (A) Negative [facility] Glucose, UA 1+ (A) Negative [facility] Ketones, UA Negative Negative [facility] Bilirubin, UA Negative Negative [facility] Blood, UA Negative Negative [facility] Nitrite, UA Negative Negative [facility] Urobilinogen, UA <2.0 <2.0 E.U./dL [facility] Leukocyte esterase, UA Negative Negative [facility] Epithelial cells, UA <1 /HPF [facility] Round epithelial cells, UA <1 0 - 5 /HPF [facility] WBC, UA 2 0 - 4 /HPF [facility] RBC, UA <1 0 - 5 /HPF [facility] Bacteria, UA None seen None seen [facility] Yeast, UA None seen [facility] Yeast with pseudohyphae, UA None seen [facility] Hyaline casts, UA 0-2 /LPF [facility] Specimen Urine Performing Organization Address City/[facility]/Zipcode Phone Number [facility] DEPARTMENT OF PATHOLOGY [id number] [place] [address] [place] [address] HOSPITAL Protein, urine, random (09/25/2018 3:52 PM LEATHER GOODS SALES REPRESENTATIVE) Total volume, urine 60 mL [facility] Urine protein concentration 506 mg/dL [facility] Urine protein excretion 304 mg/vol [facility] Specimen Urine Performing Organization Address City/State/Zipcode Phone Number [facility] DEPARTMENT OF PATHOLOGY [address] [place] [address] [address] Creatinine level, urine, random (09/25/2018 3:52 PM LEATHER GOODS SALES REPRESENTATIVE) Total volume, urine 60 mL [facility] Urine creatinine concentration 71 mg/dL [facility] Urine creatinine excretion 43 mg/vol [facility] Specimen Urine Performing Organization Address City/[facility] Phone Number [facility] DEPARTMENT OF PATHOLOGY [address] [place] [address] Urine culture (09/25/2018 3:52 PM LEATHER GOODS SALES REPRESENTATIVE)Only the most recent of2 resultswithin the time period is included. Urine culture SEE COMMENTComment: Bacteriuria [facility] screen negative. HOSPITAL Performing Organization Address City/State/[facility] Phone Number [facility] DEPARTMENT OF PATHOLOGY [address] [place] [address] Cv stress test (09/25/2018 11:55 AM LEATHER GOODS SALES REPRESENTATIVE) Resting HR 75 [facility] Resting BP 136 [facility] Peak MET Achieved 1.0 H MUSE Protocol Name Regadenoson [facility] Time in Exercise Phase 00:01:00 [facility] Max Systolic BP 136 [facility] Max Diastolic BP 79 [facility] Max Heart Rate 81 [facility] Max Predicted Heart Rate 166 [facility] M[facility] Target HR Formula (220 - Age)*85% H MUSE Test Indication ANGINA H MUSE Arrhy During Ex none H MUSE ECG Interp Before EX Normal H M[facility] ECG Interp During Ex none [facility] Ex Summary Comment Normal stress test [facility] Chest Pain Statement none [facility] Reason for Termination COMPLETION OF PROTOCOL [facility] Stress Test Impression Waveform interpreted in report [facility] associated with image study. No interpretation is provided as part of this Stress ECG report.--Electronically Signed By Zaire Pulido MD ([id number]), manager editorial Gasper Ramirez ([id number]) on 09/25/2018 10:54:42 AM Target HR 166.00 bpm [facility] Narrative Performed At Performing Organization Address City/[facility] Phone Number [facility] [address] [place] [address] Nm myocardial perfusion (09/25/2018 11:55 AM LEATHER GOODS SALES REPRESENTATIVE) Target HR 166.00 bpm [facility] Resting HR 75 BPM [facility] Resting BP 136/79 mmHg [facility] Post Peak HR 81 bpm [facility] Percent HR 48.80 % [facility] Post Peak BP 136/79 mmHg [facility] Exercise duration (min) 1 min [facility] Narrative Performed At [facility] 1.Normal coronary perfusion. 2.Normal left ventricular systolic function with normal left ventricular wall motion. 3.Left ventricular ejection is 61 % based on gated stress images. 4.This study result indicates a low risk of cardiac , or nonfatal infarction, over the ensuing year. Performing Organization Address City/[facility] Phone Number [facility] [address] [place] [address] Hepatitis B core antibody total (09/25/2018 5:45 AM LEATHER GOODS SALES REPRESENTATIVE) Hepatitis B core total Ab Non-reactive Non-reactive [facility] Specimen Blood Performing Organization Address City/[facility] Phone Number [facility] DEPARTMENT OF PATHOLOGY AND [address] [place] [address] [address] Hepatitis B surface antibody (09/25/2018 5:45 AM LEATHER GOODS SALES REPRESENTATIVE) Hepatitis B surface Ab Non-reactive Non-reactive [facility] Specimen Blood Performing Organization Address City/[facility]/Zipcode Phone Number [facility] DEPARTMENT OF PATHOLOGY AND [address] [place] [address] [address] Hepatitis B surface antigen (09/25/2018 5:45 AM LEATHER GOODS SALES REPRESENTATIVE) Hepatitis B surface Ag Non-reactive Non-reactive [facility] Specimen Blood Performing Organization Address City/[facility]/Zipcode Phone Number [facility] DEPARTMENT OF PATHOLOGY [id number] [place] [address] Hemoglobin A1c (09/25/2018 5:45 AM LEATHER GOODS SALES REPRESENTATIVE) Hemoglobin A1C 6.5 (H) 4.0 - 6.0 % [facility] Comment: HOSPITAL Less than 6% - Goal of therapy for Type II Diabetes Less than 7%-Goal of therapy for Type I Diabetes Less than 8%-Acceptable control for Type I or Type II Diabetes Greater than 8%-Unacceptable control; action indicated. ([id number]) Specimen Blood Performing Organization Address City/[facility]/Zipcode Phone Number [facility] DEPARTMENT OF PATHOLOGY [phone] [place] [address] Lipid panel (09/25/2018 5:45 AM LEATHER GOODS SALES REPRESENTATIVE) Cholesterol 147 0 - 199 mg/dL [facility] Triglycerides 117 0 - 149 mg/dL [facility] HDL cholesterol 38 (L) 40 - 99,999 [facility] mg/dL [facility] LDL cholesterol 96 0 - 99 mg/dL [facility] Lipid panel See below [facility] interpretation Comment: [facility] Total Cholesterol (mg/dL) <200 Desirable 890-378Hvgcvrybyo-vqae >=240High Triglycerides (mg/dL) <150 Normal 764-743Hmsnlcpvxx-hfqr 200-499High >=500Very high HDL Cholesterol (mg/dL) <40Low (male) <50Low (female) LDL Cholesterol (mg/dL) <100 Optimal 100-129Near or above optimal 205-363Jyltjvmmmf-ftqk 160-189High >=190Very high Risk Catergories that modify LDL goals. Risk CatergoriesLDL goal (mg/dL) CHD and CHD risk equivalent<100 (10-year risk >20%) Multiple (2+) risk factors <130 (10-year risk=<20%) 0-1 risk factors <160 (<10-year risk) Defining levels of lipids in metabolic syndrome Triglycerides>=150 mg/dL HDL Cholesterol Men<40 mg/dL Women<50 mg/dL Non-HDL cholesterol is a second target for therapy in persons with high triglycerides (>=200 mg/dL) Specimen Plasma specimen Performing Organization Address City/State/Zipcode Phone Number [facility] DEPARTMENT OF PATHOLOGY [address] [place] [address] AND GENOMIC MEDICINE [facility] [address] Echocardiogram complete w contrast and 3D if needed (09/24/2018 11:33 AM [employer] REPRESENTATIVE) AoV Area, Vmax 2.68 cm2 [facility] AoV Area, VTI 2.56 cm2 [facility] AoV Mean PG 6.00 mmHg [facility] AoV Peak PG 9.61 mmHg [facility] AoV Vmax 1.55 m/s [facility] AoV VTI 0.33 m [facility] IVS,d 1.04 cm [facility] IVS/LVPW,2D 1.06 [facility] Left Atrium Dimension Anterior 3.80 cm [facility] LV,d 4.81 cm [facility] LV EF,2D 73.23 % [facility] LV,s 3.10 cm [facility] LVOT area 3.14 cm2 [facility] LVOT Diam,S 2.00 cm [facility] LVOT Vmax 1.32 m/s [facility] LVOT VTI 0.27 m [facility] LVPWD,d 0.98 cm [facility] MV E A ratio 0.81 [facility] E wave decelartion time 169.00 msec [facility] MV Peak A Landon 1.06 m/s [facility] MV valve area p 1/2 method 4.49 cm2 [facility] MV Peak E Landon 0.85 m/s [facility] MV stenosis pressure 1/2 time 49.01 ms [facility] AV LVOT peak gradient 6.97 mmHg [facility] Ao Root,d,2D 3.80 cm [facility] LV SYS VOL 37.92 ml [facility] LV CACERES VOL 108.04 ml [facility] LV SV Teich 2D 70.13 ml [facility] LV Vol s Teich PSAX 37.92 ml [facility] AoV Vmn 1.14 [facility] LV FS Teich 2D 35.55 [facility] MV AE ratio 1.24 [facility] LV FS Cube 2D 35.55 [facility] LVOT Vmn 0.90 [facility] Aov area Vmn 2.47 cm2 [facility] LVOT mean grad 4.00 mmHg [facility] MAX Pred HR 165.50 [facility] 85 of MPHR 140.67 [facility] Ao d LA s ratio 1.00 [facility] Calc MPHR 165.50 bpm [facility] LV SV Cube 2D 81.49 ml [facility] LV vol d cube 2D 111.28 ml [facility] LV vol s cube 2D 29.79 ml [facility] MV Decel slope 5.05 m/s2 [facility] Pred Exer Dur R1 8.50 [facility] Pred METS R1 7.61 [facility] Velocity Ratio (V1/V2) 0.85 m/s [facility] EF 64.90 % [facility] E/A ratio 0.80 [facility] Narrative Performed At Left ventricular systolic function is normal. [facility] Left Ventricular ejection fraction is 55 - 60%. There is pericardial effusion. There is a small pericardial effusion located circumferentially. Right Ventricle: Normal right ventricular size, wall thickness and global function. No evidence of pulmonary hypertension present. Spectral Doppler shows normal pattern of LV diastolic filling. Normal LV filling pressure. No significant valvular heart disease Performing Organization Address [facility] Phone Number [facility] [address] [place] [address] Total iron binding capacity (09/24/2018 10:15 AM [employer] REPRESENTATIVE) Iron level 34 (L) 37 - 145 ug/dL [facility] Iron binding capacity 179 (L) 260 - 460 ug/dL [facility] % Saturation 19.0 15.0 - 38.0 % [facility] Specimen Plasma specimen Performing Organization Address [facility] Phone Number [facility] DEPARTMENT OF PATHOLOGY [address] [place] [address] AND GENOMIC MEDICINE [facility] [address] Comprehensive metabolic panel (09/24/2018 10:15 AM [employer] REPRESENTATIVE)Only the most recent of2 resultswithin the time period is included. Sodium 144 135 - 148 mEq/L [facility] Potassium 5.1 (H) 3.5 - 5.0 mEq/L [facility] Chloride 110 98 - 112 mEq/L [facility] CO2 19 (L) 24 - 31 mEq/L [facility] Anion gap 15@ANIO 7 - 15 mEq/L [facility] BUN 54 (H) 6 - 20 mg/dL [facility] Creatinine 3.98 (H) 0.50 - 0.90 mg/dL [facility] Glucose 140 (H) 65 - 99 mg/dL [facility] Calcium 8.0 (L) 8.3 - 10.2 mg/dL [facility] Protein 6.2 (L) 6.3 - 8.3 g/dL [facility] Albumin 3.3 (L) 3.5 - 5.0 g/dL [facility] A/G ratio 1.1 0.7 - 3.8 [facility] Alkaline phosphatase 74 35 - 104 U/L [facility] AST 16 10 - 35 U/L [facility] ALT 16 5 - 50 U/L [facility] Total bilirubin <0.2 0.2 - 1.2 mg/dL [facility] Specimen Plasma specimen Performing Organization Address City/State/Zipcode Phone Number [facility] DEPARTMENT OF PATHOLOGY [address] [place] [address] AND GENOMIC MEDICINE [facility] [address] Troponin (09/24/2018 6:00 AM [employer] REPRESENTATIVE)Only the most recent of3 resultswithin the time period is included. Troponin <0.30 0.00 - 0.30 ng/mL [facility] Comment: HOSPITAL 0.11 - 1.49 ng/mlMay indicate increased risk of acute coronary syndrome. >=1.5 ng/mlConsistent with acute myocardial infarction. The diagnostic value of a single normal or non-diagnostic result is questionable.Serial samples at 2-6 hour intervals are required to rule out acute myocardial injury. Specimen Plasma specimen Performing Organization Address City/[facility]/Zipcode Phone Number [facility] DEPARTMENT OF PATHOLOGY [address] [place] [address] AND GENOMIC MEDICINE [facility] [address] [place] [address] HOSPITAL US Renal (09/23/2018 10:21 PM [employer] REPRESENTATIVE) Narrative Performed At Examination:[facility] Clinical History: Renal failureacute (kidney injury) Comparison: None. Findings: Bilateral renal ultrasound was performed. The right kidney measures 11.2 x 4.5 x 4.3 cm. The cortex measures 1.2 cm. The left kidney measures 10.8 x 4.2 x 5.4 cm. The cortex measures 1.4 cm. No hydronephrosis or urinary calculus is seen. Urinary bladder is unremarkable. IMPRESSION: 1. No focal abnormality identified in the kidneys on ultrasound. [id number] Procedure Note Interface, Radiology Results Incoming - 09/23/2018 10:28 PM [employer] REPRESENTATIVE Examination: US RENAL Clinical History: Renal failure acute (kidney injury) Comparison: None. Findings: Bilateral renal ultrasound was performed. The right kidney measures 11.2 x 4.5 x 4.3 cm. The cortex measures 1.2 cm. The left kidney measures 10.8 x 4.2 x 5.4 cm. The cortex measures 1.4 cm. No hydronephrosis or urinary calculus is seen. Urinary bladder is unremarkable. IMPRESSION: 1. No focal abnormality identified in the kidneys on ultrasound. [id number] Performing Organization Address [facility]/Zipcode Phone Number [facility] [address] [place] [address] JENA titer (09/23/2018 10:05 PM [employer] REPRESENTATIVE) JENA titer 1:80 (A) Not-Detected [facility] JENA pattern See below (A)Comment: Not-Detected [facility] HOMOGENEOUS, NUCLEOLAR Specimen Blood Performing Organization Address [facility]/Zipcode Phone Number [facility] DEPARTMENT OF PATHOLOGY AND [address] [place] [address] [address] Anti-neutrophilic cytoplasmic Abs panel (09/23/2018 10:05 PM [employer] REPRESENTATIVE) ANCA screen Negative Negative [facility] Specimen Blood Performing Organization Address City/[facility] Phone Number [facility] DEPARTMENT OF PATHOLOGY AND [address] [place] [id number] [place] [id number] C3 complement component (09/23/2018 10:05 PM [employer] REPRESENTATIVE) C3 complement 119 90 - 180 mg/dL [facility] Specimen Plasma specimen Performing Organization Address City/[facility] Phone Number [facility] DEPARTMENT OF PATHOLOGY AND [address] [place] [id number] [place] [id number] C4 complement component (09/23/2018 10:05 PM [employer] REPRESENTATIVE) C4 complement 31 10 - 40 mg/dL [facility] Specimen Plasma specimen Performing Organization Address City/[facility] Phone Number [facility] DEPARTMENT OF PATHOLOGY AND [address] [place] [id number] [place] [phone] JENA (09/23/2018 10:05 PM [employer] REPRESENTATIVE) JENA screen Positive (A) Negative [facility] Specimen Blood Performing Organization Address City/[facility] Phone Number [facility] DEPARTMENT OF PATHOLOGY AND [address] [place] [address] Potassium level (09/23/2018 10:05 PM [employer] REPRESENTATIVE) Potassium 4.8 3.5 - 5.0 mEq/L [facility] Specimen Plasma specimen Performing Organization Address City/[facility] Phone Number [facility] DEPARTMENT OF PATHOLOGY [id number] [place] [address] AND [facility] [id number] [place] [address] HOSPITAL XR Chest 2 Vw (09/23/2018 8:46 PM [employer] REPRESENTATIVE) Narrative Performed At EXAMINATION: XR CHEST 2 VW RADIANT INDICATION: Chest pain COMPARISON: None IMPRESSION: Mild pulmonary edema with small bilateral pleural effusions, both likely cardiogenic and/or due to volume overload. No pneumothorax. Enlarged cardiac silhouette. Surgical clips overlie the upper abdomen. [id number] Procedure Note Interface, Radiology Results Incoming - 09/23/2018 8:52 PM [employer] REPRESENTATIVE EXAMINATION: XR CHEST 2 VW INDICATION: Chest pain COMPARISON: None IMPRESSION: Mild pulmonary edema with small bilateral pleural effusions, both likely cardiogenic and/or due to volume overload. No pneumothorax. Enlarged cardiac silhouette. Surgical clips overlie the upper abdomen. [id number] Performing Organization Address City/[facility]/Zipcode Phone Number [facility] [address] [place] [address] hCG qualitative, serum screen (09/23/2018 8:15 PM [employer] REPRESENTATIVE) hCG qualitative, serum NegativeComment: [facility] Sensitivity of HCG test: 25 [facility] mIU/mL Specimen Blood Performing Organization Address [facility] Phone Number [facility] DEPARTMENT OF PATHOLOGY [address] [place] [address] Partial thromboplastin time, activated (09/23/2018 8:12 PM [employer] REPRESENTATIVE) PTT 38.8 (H) 23.0 - 36.0 sec [facility] Comment: [facility] PTT therapeutic range for unfractionated heparin is 61.0-112.0 seconds which corresponds to Anti-Xa 0.3-0.7 U/ml. Specimen Blood Performing Organization Address [facility] Phone Number [facility] DEPARTMENT OF PATHOLOGY [address] [place] [address] Prothrombin time with INR (09/23/2018 8:12 PM [employer] REPRESENTATIVE) Prothrombin time 13.1 11.5 - 14.5 sec [facility] INR 1.0 [facility] Comment: [facility] The International Normalized Ratio (INR) is a therapeutic monitoring tool for patients who are stable on oral anticoagulant therapy. An INR of 2.0-3.0 is suggested for deep vein thrombosis/pulmonary embolism. Specimen Blood Performing Organization Address [facility] Phone Number [facility] DEPARTMENT OF PATHOLOGY [address] [place] [address] B natriuretic peptide (09/23/2018 8:12 PM [employer] REPRESENTATIVE) BNP 130 (H) 0 - 100 pg/mL [facility] Specimen Blood Performing Organization Address City/[facility]/Zipcode Phone Number [facility] DEPARTMENT OF PATHOLOGY [address] [place] [address] AND GENOMIC MEDICINE [address] Lipase level (09/23/2018 8:12 PM [employer] REPRESENTATIVE) Lipase 16 13 - 60 U/L [facility] Specimen Plasma specimen Performing Organization Address City/State/[facility] Phone Number [facility] DEPARTMENT OF PATHOLOGY [address] [place] [address] Creatine kinase, total (CPK) (09/23/2018 8:12 PM [employer] REPRESENTATIVE) Creatine kinase 293 (H) 26 - 192 U/L [facility] Specimen Plasma specimen Performing Organization Address [facility] Phone Number [facility] DEPARTMENT OF PATHOLOGY [address] [place] [address] ECG ED Preliminary Interpretation - Not an Order (09/23/2018 8:02 PM [employer] REPRESENTATIVE) Narrative Performed At [place] NP 09/24/2018 12:00 AM ECG ED Preliminary Interpretation - Not an Order Performed by: [place] NP Authorized by: Dat Wagner MD ECG reviewed by ED Physician in the absence of a neonatologist: yes Interpretation: Interpretation: normal Rate: ECG rate:91 ECG rate assessment: normal Rhythm: Rhythm: sinus rhythm Ectopy: Ectopy: none QRS: QRS axis:Normal (74) QRS intervals:Normal Conduction: Conduction: normal ST segments: ST segments:Normal T waves: T waves: normal ECG 12 lead (09/23/2018 7:54 PM [employer] REPRESENTATIVE) Ventricular rate 91 [facility] Atrial rate 91 [facility] [place] interval 128 [facility] QRSD interval 74 [facility] QT interval 372 [facility] QTC interval 457 [facility] P axis 1 24 [facility] QRS axis 1 28 [facility] T wave axis 59 [facility] EKG impression Normal sinus rhythm-Normal ECG-No previous [facility] MUSE ECGs available- Narrative Performed At Performing Organization Address City/State/Zipcode Phone Number [facility] [address] [place] [address] after 01/25/2018 Insurance Payer Benefit Plan / Group Subscriber ID Type Phone Address MEDICAID MEDICAID xxxxxxxxx Medicaid PENDING MEDICAID PENDING DISABILITY MEDICAID xxxxxxxxx Medicaid COVERAGE Advance Directives Patient has advance care planning documents on file. For more information, please contact:Dennis [id number] [place] [address]
[2019-01-26 11:47] LABS: Absolute Lymphocytes (CBC) 2.4 K/uL (0.7-4.9); Absolute Monocytes 0.4 K/uL (0.1-1.3); Absolute Neutrophil 5.8 K/uL (1.8-8.0); Basophils % 1.2 % (0-1.3); Eosinophils % 1.3 % (0-4.4); Hematocrit 18.8 % (36.0-45.0); Monocytes % 4.4 % (3.3-12.3); RBC Red Blood Cell Count 2.14 M/uL (3.86-4.86)
[2019-01-26] MEDS ORDERED: KETOROLAC 30 MG/ML INJ ONE (11:55)
[2019-01-26 12:13] LABS: ALT/SGPT 10 U/L (12-78); AST/SGOT 8 U/L (15-37); Albumin 3.1 g/dL (3.4-5.0); Alkaline Phosphatase 74 U/L (45-117); BUN Blood Urea Nitrogen 86 mg/dL (7-18); Bicarbonate 25 mmol/L (21-32); Bilirubin Direct < 0.1 mg/dL (0-0.2); Bilirubin Total 0.2 mg/dL (0.2-1.0); Glucose Level 332 mg/dL (74-106); Lipase 103 U/L (73-393); Potassium 4.5 mmol/L (3.5-5.1); Protein, Total 6.2 g/dL (6.4-8.2); Sodium Level 138 mmol/L (136-145)
[2019-01-26] MEDS ORDERED: SUCRALFATE 1 GM TABLET ONE (12:13)
[2019-01-26] MEDS ORDERED: PANTOPRAZOLE 40 MG INJ ONE (12:14)
--- NOTE | 2019-01-26 14:06 | EDPHYS ---
Physician Documentation [facility] Name: Marlene Floyd Age: 53 yrs Sex: Female : 1965 Arrival Date: 01/26/2019 Time: 10:13 Bed 14 Private MD: None, None ED Physician Estrada Morales HPI: 01/26 11:14 This 53 yrs old Female presents to ER via Ambulatory with complaints of ps1 Vomiting coffee grounds/catheter taken out. 11:14 Patient is a dialysis patient and she states that she had her dialysis catheter taken ps1 out yesterday. She states that she now has global pain after having dialysis. Additionally she states that she had a recent EGD and was told that she had some bleeding in the lining of her stomach. She states that she had some coffee ground emesis this morning. Her EGD was performed in [place]. Her pain is rated as severe and localized all over her body. She sees Dr. Chance for pain control and is on Vance. She did not address the increase in pain with him for intervention. . 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 - Post-menopause hj Historical: - Allergies: 10:37 No Known Allergies; hj - Home Meds: 10:37 Plavix 75 mg Oral tab 1 tab once daily [Active]; magnesium oxide 500 mg Oral cap hj [Active]; Vance 5-325 mg Oral tab 1 tab every 4-6 hours [Active]; isosorbide mononitrate 30 mg Oral Tb24 1 tab once daily [Active]; amlodipine 10 mg tab 1 tab once daily [Active]; omeprazole 40 mg Oral cpDR 1 cap once daily [Active]; metoprolol tartrate 25 mg Oral tab 1 tab 2 times per day [Active]; Lyrica Oral [Active]; - PMHx: 10:37 Diabetes - NIDDM; Fibromyalgia; GALLSTONES; Dialysis; hj - PSHx: 10:37 dialysis port; fistula; hj - Immunization history:: Adult Immunizations up to date. - Social history:: Smoking status: Patient/guardian denies using tobacco, Patient/guardian denies using alcohol. - Ebola Screening: : Patient negative for fever greater than or equal to 101.5 degrees Fahrenheit, and additional compatible Ebola Virus Disease symptoms Patient denies exposure to infectious person Patient denies travel to an Ebola-affected area in the 21 days before illness onset. ROS: 11:14 Constitutional: Negative for fever, chills, and weight loss, Eyes: Negative for injury, ps1 pain, redness, and discharge, Cardiovascular: Negative for chest pain, palpitations, and edema, Respiratory: Negative for shortness of breath, cough, wheezing, and pleuritic chest pain, Skin: Negative for injury, rash, and discoloration, Neuro: Negative for headache, weakness, numbness, tingling, and seizure. 11:14 Abdomen/GI: Positive for nausea, vomiting. 11:14 Psych: Positive for Global pain, fibromyalgia. Exam: 11:14 Constitutional: This is a well developed, well nourished patient who is awake, alert, ps1 and in no acute distress. Head/Face: Normocephalic, atraumatic. Chest/axilla: Normal chest wall appearance and motion. Nontender with no deformity. No lesions are appreciated. Cardiovascular: Regular rate and rhythm. No gallops, murmurs, or rubs. Normal PMI, no JVD. No pulse deficits. Respiratory: Lungs have equal breath sounds bilaterally, clear to auscultation and percussion. No rales, rhonchi or wheezes noted. No increased work of breathing, no retractions or nasal flaring. 11:14 Abdomen/GI: Inspection: abdomen appears normal, Bowel sounds: normal, Palpation: nontender. 15:00 : Rectal exam: is normal, Rectal tone: normal, Guaiac testing: results were positive ps1 for occult blood, the nurse was present for the exam. Vital Signs: 10:37 Pulse 77; Resp 18; Temp 98.4(O); Pulse Ox 98% on R/A; Weight 72.57 kg; Height 5 ft. 1 hj in. (154.94 cm); Pain 10/10; 11:52 BP 159 / 79; Pulse 88; Resp 17; Pulse Ox 98% on R/A; tw2 12:28 BP 132 / 70; Pulse 74; Resp 17; Pulse Ox 99% on R/A; tw2 13:30 BP 136 / 69; Pulse 75; Resp 17; Pulse Ox 98% on R/A; tw2 14:49 BP 135 / 75; Pulse 75; Resp 17; Pulse Ox 98% on R/A; tw2 15:30 BP 111 / 63; Pulse 72; Resp 17; Pulse Ox 99% on R/A; tw2 16:09 BP 113 / 64; Pulse 72; Resp 17; Pulse Ox 96% on R/A; tw2 10:37 Body Mass Index 30.23 (72.57 kg, 154.94 cm) hj MDM: 11:24 Patient medically screened. ps1 15:01 Data reviewed: vital signs, nurses notes, lab test result(s), radiologic studies, and ps1 as a result, I will admit patient. 01/26 11:03 Order name: Basic Metabolic Panel; Complete Time: 12:14 [facility] 01/26 11:03 Order name: CBC with Diff; Complete Time: 11:51 [facility] 01/26 11:03 Order name: Creatinine for Radiology; Complete Time: 12:08 [facility] 01/26 11:03 Order name: Hepatic Function; Complete Time: 12:14 [facility] 01/26 11:03 Order name: Lipase; Complete Time: 12:14 [facility] 01/26 11:53 Order name: Type And Screen [facility] 01/26 13:47 Order name: ABO/RH no charge; Complete Time: 13:47 [facility] 01/26 14:51 Order name: Occult Blood [facility] 01/26 15:23 Order name: Hematocrit [facility] 01/26 15:23 Order name: Hemoglobin [facility] 01/26 15:52 Order name: Packed RBCs (Additional Unit) [facility] 01/26 11:03 Order name: IV Saline Lock; Complete Time: 11:41 [facility] 01/26 11:03 Order name: Labs collected and sent; Complete Time: 11:41 [facility] 01/26 11:53 Order name: Consent for Blood Transfusion; Complete Time: 13:44 [facility] 01/26 11:53 Order name: IV Saline Lock; Complete Time: 11:55 [facility] 01/26 14:22 Order name: EKG Electrocardiogram [facility] 01/26 14:51 Order name: Thorax Wo Con; Complete Time: 16:16 EDND 01/26 14:51 Order name: CONS Physician Consult EDND 01/26 14:51 Order name: CONS Physician Consult [facility] 01/26 14:51 Order name: NPO EDND 01/26 12:58 Order name: Labs - recollect needed; Complete Time: 13:44 bd EC:58 Rate is 76 beats/min. Rhythm is regular. QRS [place] is Normal. OK interval is normal. QRS ps1 interval is normal. QT interval is normal. No Q waves. T waves are Normal. No ST changes noted. Clinical impression: Normal ECG. Interpreted by me. Administered Medications: 11:48 Drug: TORadol 30 mg Route: IVP; Site: right forearm; tw2 12:24 Follow up: Response: No adverse reaction tw2 12:10 Drug: CarafATE 1 grams Route: PO; tw2 13:45 Follow up: Response: No adverse reaction tw2 12:11 Drug: ProTONIX 80 mg Route: IVP; Site: right forearm; tw2 12:24 Follow up: Response: No adverse reaction tw2 14:04 Drug: Zofran 4 mg Route: IVP; Site: right forearm; tw2 15:36 Follow up: Response: No adverse reaction tw2 14:06 Drug: morphine 4 mg Route: IVP; Site: right forearm; tw2 15:36 Follow up: Response: No adverse reaction tw2 15:58 CANCELLED (MD ORDERING): Pantoprazole 8 mg/hr IV at 25 ml/hr continuous; (Standard tw2 dilution is 80 mg in 250 mL NS) 16:01 Drug: Pantoprazole 8 mg/hr Route: IV; Rate: 25 ml/hr; Site: right forearm; tw2 16:08 Follow up: IV Status: Infusion continued upon admission tw2 Disposition: 01/26/19 14:06 Hospitalization ordered by Leyla Walker for Inpatient Admission. Preliminary diagnosis are anemia, upper gi bleed. - Bed requested for Intensive Care Unit. - Status is Inpatient Admission. hb - Condition is Stable. - Problem is new. - Symptoms are unchanged. UTI on Admission? No Signatures: Dispatcher [employer] EDMS Nguyen Mcmillan Henry RN DIMITRIOS Martha Beyer RN RN hb Aidee Richardson RN RN tw2 Shelly Samuel RN RN df Estrada Morales MD MD ps1 Corrections: (The following items were deleted from the chart) 15:48 14:06 Hospitalization Ordered by Leyla Walker MD for Inpatient Admission. Preliminary df diagnosis is anemia; upper gi bleed. Bed requested for Telemetry/MedSurg (Inpatient). Status is Inpatient Admission. Condition is Stable. Problem is new. Symptoms are unchanged. UTI on Admission? No. ps1 15:53 15:23 Packed RBC Leukored -1 ordered. EDND EDMS 15:53 15:23 ABO/RH typing ordered. EDND EDMS 15:53 15:23 Antibody Screen ordered. EDND EDMS 15:58 15:57 Pantoprazole 8 mg/hr IV at 25 ml/hr continuous; (Standard dilution is 80 mg in tw2 250 mL NS) ordered. tw2 16:33 15:48 01/26/2019 14:06 Hospitalization Ordered by Leyla Walker MD for Inpatient hb Admission. Preliminary diagnosis is anemia; upper gi bleed. Bed requested for Intensive Care Unit. Status is Inpatient Admission. Condition is Stable. Problem is new. Symptoms are unchanged. UTI on Admission? No. df
--- NOTE | 2019-01-26 14:06 | ER ---
Nurse's Notes [facility] Name: Marlene Floyd Age: 53 yrs Sex: Female : 1965 Arrival Date: 01/26/2019 Time: 10:13 Bed 14 Private MD: None, None Diagnosis: anemia;upper gi bleed Presentation: 01/26 10:31 Presenting complaint: Patient states: i have a port for dialysis that was taken out hj today [place] and when i was at the recovery i started vomiting and vomited a coffee ground vomit; now im hurting all over;. Transition of care: patient was not received from another setting of care. Onset of symptoms was January 26, 2019. Risk Assessment: Do you want to hurt yourself or someone else? Patient reports no desire to harm self or others. Initial Sepsis Screen: Does the patient meet any 2 criteria? No. Patient's initial sepsis screen is negative. Does the patient have a suspected source of infection? No. Patient's initial sepsis screen is negative. Care prior to arrival: None. 10:31 Method Of Arrival: Ambulatory 10:31 Acuity: ADDIE 3 Triage Assessment: 10:38 General: Appears in no apparent distress. uncomfortable, Behavior is cooperative, hj appropriate for age, agitated, anxious, crying. Pain: Complains of pain in body. ASSOCIATE DIRECTOR CAREER SERVICES: 10:37 LMP N/A - Post-menopause Historical: - Allergies: 10:37 No Known Allergies; hj - Home Meds: 10:37 Plavix 75 mg Oral tab 1 tab once daily [Active]; magnesium oxide 500 mg Oral cap [Active]; [place] 5-325 mg Oral tab 1 tab every 4-6 hours [Active]; isosorbide mononitrate 30 mg Oral Tb24 1 tab once daily [Active]; amlodipine 10 mg tab 1 tab once daily [Active]; omeprazole 40 mg Oral cpDR 1 cap once daily [Active]; metoprolol tartrate 25 mg Oral tab 1 tab 2 times per day [Active]; Lyrica Oral [Active]; - PMHx: 10:37 Diabetes - NIDDM; Fibromyalgia; GALLSTONES; Dialysis; hj - PSHx: 10:37 dialysis port; fistula; hj - Immunization history:: Adult Immunizations up to date. - Social history:: Smoking status: Patient/guardian denies using tobacco, Patient/guardian denies using alcohol. - Ebola Screening: : Patient negative for fever greater than or equal to 101.5 degrees Fahrenheit, and additional compatible Ebola Virus Disease symptoms Patient denies exposure to infectious person Patient denies travel to an Ebola-affected area in the 21 days before illness onset. Screenin:37 Abuse screen: Denies threats or abuse. Denies injuries from another. Nutritional hj screening: No deficits noted. Tuberculosis screening: No symptoms or risk factors identified. Fall Risk None identified. Assessment: 10:40 General: Appears in no apparent distress. Behavior is calm, cooperative, appropriate tw2 for age. Pain: Complains of pain in abdomen. Neuro: Level of Consciousness is awake, alert, obeys commands, Oriented to person, place, time, situation. Cardiovascular: Heart tones S1 S2 Patient's skin is warm and dry. Respiratory: Airway is patent Respiratory effort is even, unlabored, Respiratory pattern is regular, symmetrical, Breath sounds are clear bilaterally. GI: Abdomen is round non-distended, obese, Bowel sounds present X 4 quads. : No signs and/or symptoms were reported regarding the genitourinary system. EENT: No signs and/or symptoms were reported regarding the EENT system. Derm: No signs and/or symptoms reported regarding the dermatologic system. Skin is pale. Musculoskeletal: Range of motion: intact in all extremities. 11:56 Reassessment: CRITICAL LABS: HGB 6.2, Hct 18.8, provider notified. tw2 12:28 Reassessment: Patient appears in no apparent distress at this time. No changes from tw2 previously documented assessment. Patient and/or family updated on plan of care and expected duration. Pain level reassessed. 13:26 Reassessment: Patient and/or family updated on plan of care and expected duration. Pain tw2 level reassessed. provider notified. Patient states symptoms have not improved. 14:50 Reassessment: Patient appears in no apparent distress at this time. No changes from tw2 previously documented assessment. Patient and/or family updated on plan of care and expected duration. Pain level reassessed. Vital Signs: 10:37 Pulse 77; Resp 18; Temp 98.4(O); Pulse Ox 98% on R/A; Weight 72.57 kg; Height 5 ft. 1 hj in. (154.94 cm); Pain 10/10; 11:52 BP 159 / 79; Pulse 88; Resp 17; Pulse Ox 98% on R/A; tw2 12:28 BP 132 / 70; Pulse 74; Resp 17; Pulse Ox 99% on R/A; tw2 13:30 BP 136 / 69; Pulse 75; Resp 17; Pulse Ox 98% on R/A; tw2 14:49 BP 135 / 75; Pulse 75; Resp 17; Pulse Ox 98% on R/A; tw2 15:30 BP 111 / 63; Pulse 72; Resp 17; Pulse Ox 99% on R/A; tw2 16:09 BP 113 / 64; Pulse 72; Resp 17; Pulse Ox 96% on R/A; tw2 10:37 Body Mass Index 30.23 (72.57 kg, 154.94 cm) hj ED Course: 10:13 Patient arrived in ED. dp 10:14 None, None is Private Physician. dp 10:34 Triage completed. hj 10:38 Arm band placed on right wrist. hj 10:38 Patient has correct armband on for positive identification. Placed in gown. Bed in low hj position. Call light in reach. Side rails up X 1. 10:41 Aidee Richardson, DIMITRIOS is Primary Nurse. tw2 10:49 Estrada Morales MD is Attending Physician. ps1 11:01 EKG done, by equipment service technician. reviewed by Estrada Morales MD. at1 11:17 Missed attempt(s): 22 gauge in right antecubital area. Bleeding controlled, band aid tw2 applied, catheter tip intact. 11:37 Initial lab(s) drawn, by al, sent to lab. aa5 11:41 Missed attempt(s): 22 gauge in right forearm. per DIMITRIOS Thomas. Inserted saline lock: 22 tw2 gauge in right forearm, using aseptic technique. ,using aseptic technique. per DIMITRIOS Joshi Blood collected. 13:26 No provider procedures requiring assistance completed. tw2 13:47 Inserted saline lock: 22 gauge in right forearm, using aseptic technique. jb1 14:05 Leyla Walker MD is Hospitalizing Provider. ps1 15:[address] via stretcher. sw 15:09 CT completed. Patient tolerated procedure well. Patient moved back from CT. sw 15:10 Thorax Wo Con In Process Unspecified. EDMS 15:55 Awaiting: attempted to call report was told DIMITRIOS Ledbetter will need to call me back in 5 tw2 minutues. 16:11 Patient admitted, IV remains in place. tw2 Administered Medications: 11:48 Drug: TORadol 30 mg Route: IVP; Site: right forearm; tw2 12:24 Follow up: Response: No adverse reaction tw2 12:10 Drug: CarafATE 1 grams Route: PO; tw2 13:45 Follow up: Response: No adverse reaction tw2 12:11 Drug: ProTONIX 80 mg Route: IVP; Site: right forearm; tw2 12:24 Follow up: Response: No adverse reaction tw2 14:04 Drug: Zofran 4 mg Route: IVP; Site: right forearm; tw2 15:36 Follow up: Response: No adverse reaction tw2 14:06 Drug: morphine 4 mg Route: IVP; Site: right forearm; tw2 15:36 Follow up: Response: No adverse reaction tw2 15:58 CANCELLED ( ORDERING): Pantoprazole 8 mg/hr IV at 25 ml/hr continuous; (Standard tw2 dilution is 80 mg in 250 mL NS) 16:01 Drug: Pantoprazole 8 mg/hr Route: IV; Rate: 25 ml/hr; Site: right forearm; tw2 16:08 Follow up: IV Status: Infusion continued upon admission tw2 Outcome: 14:06 Decision to Hospitalize by Provider. ps1 16:11 Admitted to Med/surg accompanied by nurse, accompanied by tech, via stretcher, room 2, tw2 on monitor, with chart, Report called to Dimitrios Ledbetter 16:11 Condition: stable 16:11 Instructed on the need for admit. 16:33 Patient left the ED. hb Signatures: Dispatcher [employer] EDMS Ricco Weiss jb1 Madelyn Ya, DIMITRIOS RN aa5 Linda Jon, torch shearer EKG Tat1 Latasha Loomis Henry, RN RN hj Baxter, Heather, RN RN hb Wise, Tara, RN RN tw2 Estrada Morales MD MD ps1 Pena, Darian dp Corrections: (The following items were deleted from the chart) 13:27 13:26 IV discontinued, intact, bleeding controlled, No redness/swelling at site. tw2 Pressure dressing applied, tw2 13:27 13:27 Condition: stable tw2 tw2
[2019-01-26] MEDS ORDERED: MORPHINE 4 MG/ML SYR ONE (14:13)
[2019-01-26] MEDS ORDERED: ONDANSETRON 4 MG/2 ML VIAL ONE (14:13)
[2019-01-26] MEDS ORDERED: NA CHLORIDE 0.9% 1,000 ML IV SCH (15:00)
--- NOTE | 2019-01-26 15:17 | P.HP ---
Certification for Inpatient Patient admitted to: Inpatient With expected LOS: >2 Midnights Patient will require the following post-hospital care: Other Practitioner: I am a practitioner with admitting privileges, knowledge of patient current condition, hospital course, and medical plan of care. Services: Services provided to patient in accordance with Admission requirements found in Title 42 Section 412.3 of the Code of Federal Regulations Patient History Date of Service: 01/26/19 Primary Care Provider: Dr Weiss Reason for admission: GI bleed History of Present Illness: Patient is a 53-year-old female with significant past medical history of type 2 diabetes, hypertension, end-stage renal disease on hemodialysis and previous GI bleed who presented to the ED complaining of having generalized pain and hematemesis. Patient stated that she was seen at an outpatient vascular Center today for removal were of her temper HD catheter after which she started having some nausea vomiting and thus decided to come to the hospital for further workup. Patient stated that she has been having some hematemesis since last Friday and has been noticing nausea stools as well for 1 week. Patient stated that she was recently seen by GI doctor and had an EGD done at that time was consistent with minor bleeding along with gastritis. Patient was started on Protonix at that time. Patient also was recently seen by Cardiology about 4 weeks ago and was told she has severe peripheral artery disease and needs surgical intervention however patient has not been able to have a followup appointment. Patient has not been taking any aspirin or Plavix recently has stopped taking aspirin 1 week ago. Plavix has not been started yet. No other complications noted. No other complaints to offer at this time. Allergies No Known Drug Allergies Allergy (Unverified 11/22/17 13:09) Unknown meperidine [From Demerol] Adverse Reaction (Intermediate, Verified 10/08/16 16: 38) Hives/Rash Home Medications: Atorvastatin Calcium [Lipitor*] 10 mg PO DAILY 10/08/16 Esomeprazole Mag Trihydrate [Nexium] 40 mg PO DAILY 10/08/16 Insulin Detemir [Levemir] 25 unit SQ BEDTIME 10/08/16 Insulin Detemir [Levemir] 35 units SQ DAILY 10/08/16 Insulin Lispro [Humalog] 10 units SQ ACHS 10/08/16 Metformin HCl [Glucophage] 500 mg PO TID 12/06/16 Tramadol HCl [Ultram] 50 mg PO Q4HR PRN 10/08/16 Pregabalin [Lyrica*] 50 mg PO TID 10/09/16 Smz./Tmp. [Bactrim Ds 800 MG/160 MG*] 1 tab PO BID #14 tab 10/10/16 - Past Medical/Surgical History Diabetic: Yes -: DIABETES -: GALLSTONES -: FIBROMYALGIA -: CURRENTLY BEING MONITORED FOR HTN -: SHARRON-25 YRS AGO -: -: TOE SURGERY - Family History Mother -: Hypertension, Diabetes - Social History Alcohol use: No CD- Drugs: No Caffeine use: No Review of Systems 10-point ROS is otherwise unremarkable Physical Examination - Physical Exam General: Alert, In no apparent distress HEENT: Atraumatic, PERRLA, Mucous membr. moist/pink, EOMI, Sclerae nonicteric Neck: Supple, 2+ carotid pulse no bruit, No LAD, Other (Right Chest area with HD catheter Removal site that is C/D/I), Without JVD or thyroid abnormality Respiratory: Clear to auscultation bilaterally, Normal air movement Cardiovascular: Regular rate/rhythm, Normal S1 S2 Gastrointestinal: Normal bowel sounds, No tenderness Musculoskeletal: No tenderness Integumentary: No rashes Neurological: Normal speech, Normal strength at 5/5 x4 extr, Normal tone Lymphatics: No axilla or inguinal lymphadenopathy - Studies Laboratory Data (last 24 hrs) 01/26/19 11:37: Creatinine 4.68 H 01/26/19 11:37: WBC 8.8, Hgb 6.2 L*, Hct 18.8 L*, Plt Count 159 01/26/19 11:37: Sodium 138, Potassium 4.5, BUN 86 H, Creatinine 4.69 H, Glucose 332 H, Total Bilirubin 0.2, AST 8 L, ALT 10 L, Alkaline Phosphatase 74, Lipase 103 Assessment and Plan - Problems (Diagnosis) (1) Upper GI bleed Current Visit: Yes Status: Acute Plan: Upper GI bleeding - Pt with Hematemesis and Melanotic Stool -Hgb in ER is 6.2. Down from 10.2 since 01/20/19. Will Transfuse 2 Units PRBC -Stool occult + in the ER as well -GI consulted. Appreciated Reccs -Dr Solorzano will see pt here in the hospital. -recent EGD with Dr. Butt on 12/28/17 -Gastritis and Small AVM -IV protonix and NS at 50ml.hr -H/H q6h (2) Fibromyalgia Current Visit: Yes Status: Chronic Plan: Pt sees Dr Morejon for Pain mgmt -Currently on [place] BID (3) Diabetes type 2, controlled Current Visit: No Status: Chronic Qualifiers: Diabetes mellitus terminal press operator insulin use: with care home use Diabetes mellitus complication status: with circulatory complication Diabetes mellitus complication detail: with peripheral angiopathy without gangrene Qualified Code(s): E11.51 - Type 2 diabetes mellitus with diabetic peripheral angiopathy without gangrene; Z79.4 - terminal operations supervisor (current) use of insulin (4) Essential hypertension Current Visit: No Status: Chronic - Plan Admit to ICU for close monitoring, Blood Transfusion, Protonix ggt and GI consult for Possible EGD - Advance Directives Does patient have a Living Will: No Does patient have a Durable POA for Healthcare: No
--- NOTE | 2019-01-26 15:21 | RAD REPORT ---
EXAM DESCRIPTION: CT - Thorax Wo Con - 01/26/2019 3:09 pm CLINICAL HISTORY: Chest pain COMPARISON: None TECHNIQUE: Computed axial tomography of the chest was obtained. Contrast was not requested. All CT scans are performed using dose optimization technique as appropriate and may include automated exposure control or mA/KV adjustment according to patient size. FINDINGS: The evaluation of mediastinum, abdiaziz and vessels is limited secondary to lack of IV contras t administration. The lungs are essentially clear No mediastinal or hilar lymphadenopathy is seen. A pleural effusion is not present. A small to moderate pericardial effusion IMPRESSION: Small to moderate pericardial effusion
[2019-01-26] MEDS: INSULIN -REGULAR HUMAN 50 UNIT/0.5 ML ML SQ SCH ×2 (17:09→21:00)
--- NOTE | 2019-01-26 17:16 | EKG ---
Test Date: 2019-01-26 Test Time: 10:58:13 Coffee Roaster: INGRIS MEASUREMENT RESULTS: Intervals: Rate: 76 CA: 148 QRSD: 82 QT: 414 QTc: 465 [place]: P: 31 CA: 148 QRS: 25 T: 49 INTERPRETIVE STATEMENTS: Normal sinus rhythm Normal ECG Compared to ECG 01/21/2008 19:13:24 Sinus tachycardia no longer present Electronically Signed On 01-26-19 17:14:16 CDT by Dat Canela
[2019-01-26] MEDS ORDERED: PNEUMOCOCCAL VACCINE 0.5 ML IMVAC ONE (18:00)
[2019-01-26] MEDS ORDERED: D50W 25 GM/50 ML SYRINGE IV PRN (18:01)
[2019-01-26] MEDS ORDERED: GLUCAGON 1 MG/VIAL IM PRN (18:01)
[2019-01-26] MEDS: PANTOPRAZOLE INJ 80 MG in NA CHLORIDE 0.9% 250 ML IV SCH (18:05)
[2019-01-26] MEDS: MORPHINE 2 MG/ML SYR IV PRN (18:05)
[2019-01-26] MEDS ORDERED: NA CHLORIDE 0.9% 100 ML ONE (18:49)
[2019-01-26] MEDS ORDERED: TEMAZEPAM 15 MG CAP PO PRN (21:42)
[2019-01-27] MEDS: PANTOPRAZOLE INJ 80 MG in NA CHLORIDE 0.9% 250 ML IV SCH ×4 (01:11→21:00)
[2019-01-27] MEDS: MORPHINE 2 MG/ML SYR IV PRN (01:11)
[2019-01-27] MEDS ORDERED: HYDROMORPHONE HCL 0.5 MG/0.5 ML INJ IV ONE (01:31)
[2019-01-27 05:13] LABS: Absolute Lymphocytes (CBC) 3.3 K/uL (0.7-4.9); Absolute Monocytes 0.6 K/uL (0.1-1.3); Absolute Neutrophil 5.4 K/uL (1.8-8.0); Basophils % 0.7 % (0-1.3); Eosinophils % 1.9 % (0-4.4); Lymphocytes % 34.7 % (15.3-44.8); MPV 11.3 fL (7.6-11.3); RBC Red Blood Cell Count 2.36 M/uL (3.86-4.86)
[2019-01-27 05:14] LABS: Protime INR 0.98
[2019-01-27 05:16] LABS: Hematocrit 20.8 % (36.0-45.0)
[2019-01-27 05:24] LABS: Albumin 2.9 g/dL (3.4-5.0); Bilirubin Total 0.3 mg/dL (0.2-1.0); Phosphorus 5.9 mg/dL (2.5-4.9); Potassium 4.3 mmol/L (3.5-5.1); Protein, Total 5.6 g/dL (6.4-8.2)
[2019-01-27] MEDS: INSULIN -REGULAR HUMAN 50 UNIT/0.5 ML ML SQ SCH ×4 (07:30→21:00)
[2019-01-27] MEDS: HYDROMORPHONE HCL 0.5 MG/0.5 ML INJ IV PRN ×4 (08:52→22:05)
[2019-01-27] MEDS: ONDANSETRON 4 MG/2 ML VIAL IV PRN ×3 (08:52→21:56)
[2019-01-27] MEDS ORDERED: LIDOCAINE 1% MPF 2 ML AMPULE ONE (11:31)
[2019-01-27] MEDS ORDERED: PROPOFOL 200 MG/20 ML VIAL IV ONE (11:31)
[2019-01-27] MEDS ORDERED: NA CHLORIDE 0.9% 500 ML ONE (11:38)
[2019-01-27] MEDS ORDERED: EPINEPHRINE/PF 1 MG/ML AMP ONE (11:45)
--- NOTE | 2019-01-27 12:00 | P.PN ---
Subjective Date of Service: 01/27/19 Primary Care Provider: Dr Weiss Chief Complaint: GI bleed Patient seen and examined at bedside with RN. Chart reviewed. Case discussed with GI this morning. Patient is scheduled for EGD. Denies having any hematemesis or melanotic stools this morning. Hemoglobin this morning is 6.7. Currently is 1 unit status post transfusion. 1 unit of packed RBC is scheduled with dialysis. Review of Systems 10-point ROS is otherwise unremarkable Physical Examination - Vital Signs Temperature: 98.9 F Blood Pressure: 117/87 Pulse: 74 Respirations: 8 Pulse Ox (%): 97 - Physical Exam General: Alert, In no apparent distress Respiratory: Clear to auscultation bilaterally, Normal air movement Cardiovascular: Regular rate/rhythm, Normal S1 S2 Gastrointestinal: Normal bowel sounds, No tenderness Musculoskeletal: No tenderness Integumentary: No rashes Neurological: Normal speech, Normal tone, Normal affect Lymphatics: No axilla or inguinal lymphadenopathy - Studies Laboratory Data (last 24 hrs) 01/26/19 11:37: Creatinine 4.68 H 01/26/19 11:37: Sodium 138, Potassium 4.5, BUN 86 H, Creatinine 4.69 H, Glucose 332 H, Total Bilirubin 0.2, AST 8 L, ALT 10 L, Alkaline Phosphatase 74, Lipase 103 Medications List Reviewed: Yes Assessment And Plan - Current Problems (Diagnosis) (1) Upper GI bleed Current Visit: Yes Status: Acute Plan: Upper GI bleeding - Pt with Hematemesis and Melanotic Stool. Stool occult + in the ER as well -Hgb in ER is 6.2. Down from 10.2 since 01/20/19. Today hemoglobin is 6.7 -currently status post 1 unit of PRBC. Pending 1 unit during dialysis -GI consulted. Appreciated Reccs -Dr Solorzano will see pt here in the hospital. -recent EGD with Dr. Butt on 12/28/17 -Gastritis and Small AVM -scheduled for EGD this morning -IV protonix and NS at 50ml.hr -H/H q6h (2) Fibromyalgia Current Visit: Yes Status: Chronic Plan: Pt sees Dr Morejon for Pain mgmt -Currently on [place] BID -currently switched to IV Dilaudid as patient is NPO (3) Diabetes type 2, controlled Current Visit: No Status: Chronic Plan: Daily Accu-Cheks and insulin sliding scale Qualifiers: Diabetes mellitus intermediate manager insulin use: with halfway use Diabetes mellitus complication status: with circulatory complication Diabetes mellitus complication detail: with peripheral angiopathy without gangrene Qualified Code(s): E11.51 - Type 2 diabetes mellitus with diabetic peripheral angiopathy without gangrene; Z79.4 - long-term (current) use of insulin (4) Essential hypertension Current Visit: No Status: Chronic Plan: Blood pressure stable at this time. - Plan Plan for EGD this morning. Will follow up postprocedure. Continue to monitor H &H. Discharge Plan: Home Plan to discharge in: Greater than 2 days - Code Status/Comfort Care Code Status Assessed: Yes Critical Care: Yes Time Spent Managing PTS Care (In Minutes): 35
--- NOTE | 2019-01-27 18:57 | CON ---
Date of Consultation: 01/27/2019 History Of Present Illness: Ms. Floyd is a 53-year-old female with past medical history significan t for type 2 diabetes, ESRD, hypertension, and previous history of GI bleed, who presents to the [facility] room complaining of generalized pain and hematemesis. She has been having hemodialysis since t he last several months, but she has been having nausea and vomiting after dialysis and has been feeli ng extremely weak. She has also been evaluated by the manufacturing specialist and was told that she had periphe ral vascular disease and was planned to get a stent placed in her right leg. Past Medical History: Significant for history of type 2 diabetes, history of cholecystitis, fibromya lgia, chronic pain, history of AV graft placement in her left arm and status post removal of tunneled dialysis catheter. Social History: She lives at home. Denies any history of smoking at this time, but does have a hist ory of cocaine abuse in the past. Family History: Noncontributory. Physical Examination: Vital Signs: Showing temperature of 98, pulse rate of 74, respiratory rate of 13, and blood pressure 139/55. General: She appears in no acute distress. Lungs: Clear to auscultation. Heart: Auscultation of the heart reveals regular rate and rhythm. Abdomen: Soft and nontender. Extremities: Did not reveal any evidence of edema. Laboratory Data: Showing creatinine of 5.28, sodium of 143, potassium of 4.3, chloride of 108, and b icarb of 26. CBC showing hemoglobin of 6.7, hematocrit 20.8, and platelet count of 138. Current Medications: Have been reviewed in detail. The patient remains on Protonix drip. Impression: 1.End-stage renal disease, on dialysis. 2.Gastrointestinal bleed. The patient is status post esophagogastroduodenoscopy. Dr. Burr has don e it and is reporting a small gastric ulcer, but no evidence of any active bleeding. The patient has been transfused 1 unit of blood and we are waiting to transfuse another unit with dialysis. 3.Hypertension, currently stable. 4.Peripheral vascular disease. 5.Underlying coronary artery disease. 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 Plan: The patient is hemodynamically stable at this time. She is receiving blood transfusions and s he is improving. We will plan for dialysis today and 1 unit of blood with dialysis. We will follow up on results of her gastric ulcer biopsy. Continue all other medications and plan of care. Case wa s discussed at length with the patient at bedside. All questions were answered. KAUSHIK/KULWANT Voice ID: [id number] Report ID: [id number]
[2019-01-27] MEDS ORDERED: LIDOCAINE/PRILOCAINE CREAM TOP SCH (19:00)
[2019-01-27] MEDS ORDERED: NA CHLORIDE 0.9% 100 ML ONE (20:59)
[2019-01-28] MEDS: PANTOPRAZOLE INJ 80 MG in NA CHLORIDE 0.9% 250 ML IV SCH (00:07)
[2019-01-28] MEDS: ONDANSETRON 4 MG/2 ML VIAL IV PRN ×2 (02:28→13:27)
[2019-01-28] MEDS: HYDROMORPHONE HCL 0.5 MG/0.5 ML INJ IV PRN ×2 (02:29→06:07)
[2019-01-28 05:14] LABS: Absolute Lymphocytes (CBC) 2.3 K/uL (0.7-4.9); Absolute Monocytes 0.4 K/uL (0.1-1.3); Basophils % 0.8 % (0-1.3); Eosinophils % 2.6 % (0-4.4); Hematocrit 23.9 % (36.0-45.0); Lymphocytes % 25.4 % (15.3-44.8); MPV 11.2 fL (7.6-11.3); Monocytes % 4.2 % (3.3-12.3); RBC Red Blood Cell Count 2.81 M/uL (3.86-4.86)
[2019-01-28 05:17] LABS: Protime INR 0.96
[2019-01-28 05:27] LABS: Albumin 2.9 g/dL (3.4-5.0); Bilirubin Total 0.5 mg/dL (0.2-1.0); Magnesium 1.9 mg/dL (1.8-2.4); Phosphorus 4.2 mg/dL (2.5-4.9); Protein, Total 5.9 g/dL (6.4-8.2)
[2019-01-28 06:12] VITALS: BMI 28.7
[2019-01-28] MEDS: INSULIN -REGULAR HUMAN 50 UNIT/0.5 ML ML SQ SCH ×2 (07:30→11:30)
[2019-01-28 09:23] VITALS: O2SAT 98
[2019-01-28] MEDS: PREGABALIN 50 MG CAP PO SCH ×2 (11:04→13:22)
--- NOTE | 2019-01-28 11:04 | P.PN ---
Subjective Date of Service: 01/28/19 Primary Care Provider: Dr Weiss Chief Complaint: GI bleed Patient seen and examined at bedside with RN. Chart reviewed. Case discussed with GI this morning. Overnight patient decided having any coffee-ground and her bloody stools. Does still complain of having some pain all over the body. No denies having any shortness of breath chest pain or any other associated symptoms Review of Systems 10-point ROS is otherwise unremarkable Physical Examination - Vital Signs Temperature: 94 F Blood Pressure: 122/65 Pulse: 81 Respirations: 9 Pulse Ox (%): 98 - Physical Exam General: Alert, In no apparent distress HEENT: Atraumatic, PERRLA, EOMI Neck: Supple, JVD not distended Respiratory: Clear to auscultation bilaterally, Normal air movement Cardiovascular: Regular rate/rhythm, Normal S1 S2 Gastrointestinal: Normal bowel sounds, No tenderness Musculoskeletal: No tenderness Integumentary: No rashes Neurological: Normal speech, Normal tone, Normal affect Lymphatics: No axilla or inguinal lymphadenopathy - Studies Medications List Reviewed: Yes Assessment And Plan - Current Problems (Diagnosis) (1) Upper GI bleed Current Visit: Yes Status: Acute Plan: Upper GI bleeding. Pt with Hematemesis and Melanotic Stool. Stool occult + -hemoglobin stable today. -status post 2 units PRBC -GI consulted. Appreciated Reccs -status post EGD POD 1 -2 nonbleeding ulcers noted -IV protonix b.i.d. now -transfer to medical surgical floor today -advance diet to clear liquid and advance as tolerated (2) Fibromyalgia Current Visit: Yes Status: Chronic Plan: Pt sees Dr Morejon for Pain mgmt -Currently on [place] BID (3) Diabetes type 2, controlled Current Visit: No Status: Chronic Plan: Daily Accu-Cheks and insulin sliding scale Qualifiers: Diabetes mellitus longterm insulin use: with longterm use Diabetes mellitus complication status: with circulatory complication Diabetes mellitus complication detail: with peripheral angiopathy without gangrene Qualified Code(s): E11.51 - Type 2 diabetes mellitus with diabetic peripheral angiopathy without gangrene; Z79.4 - long term care social worker (current) use of insulin (4) Essential hypertension Current Visit: No Status: Chronic Plan: Blood pressure stable at this time. - Plan Pending clinical improvement. Doing well postprocedure. Transfer to the regular medical surgical floor at this time. Discharge Plan: Home Plan to discharge in: 48 Hours - Code Status/Comfort Care Code Status Assessed: Yes Critical Care: Yes Time Spent Managing PTS Care (In Minutes): 35
[2019-01-28 12:03] LABS: Urine Appearance CLEAR; Urine Bilirubin NEGATIVE (NEG); Urine Blood NEGATIVE (NEG); Urine Color YELLOW; Urine Glucose 1+ (NEG); Urine Protein 3+ (NEG); Urine Specific Gravity 1.015 (1.005-1.030); Urine Urobilinogen 0.2 mg/dL (0.2-1.0); Urine pH 7.5 (5.0-7.0)
[2019-01-28 12:04] LABS: Urine Microscopic Reflex ORDER UMIC
[2019-01-28 13:06] LABS: Urine Bacteria <20 /HPF (<20); Urine Culture Reflex Order REFLEXED; Urine RBC <5 /HPF (NONE SEEN)
[2019-01-28 14:26] VITALS: BP 148/56; TEMP 98
--- NOTE | 2019-01-28 14:46 | P.DS ---
Admission Date: 01/26/19 Discharge Date: 01/28/19 Primary Care Provider: Dr Weiss Disposition: AMA-LEFT AGAINST MEDICAL ADVIC Reason for Admission: GI bleed Consultations: GI Procedures: EGD - Problems (1) Upper GI bleed Status: Acute (2) Fibromyalgia Status: Chronic (3) Diabetes type 2, controlled Status: Chronic Qualifiers: Diabetes mellitus assisted insulin use: with assisted use Diabetes mellitus complication status: with circulatory complication Diabetes mellitus complication detail: with peripheral angiopathy without gangrene Qualified Code(s): E11.51 - Type 2 diabetes mellitus with diabetic peripheral angiopathy without gangrene; Z79.4 - custodial (current) use of insulin (4) Essential hypertension Status: Chronic Brief History of Present Illness: Patient is a 53-year-old female with significant past medical history of type 2 diabetes, hypertension, end-stage renal disease on hemodialysis and previous GI bleed who presented to the ED complaining of having generalized pain and hematemesis. Patient stated that she was seen at an outpatient vascular Center today for removal were of her temper HD catheter after which she started having some nausea vomiting and thus decided to come to the hospital for further workup. Patient stated that she has been having some hematemesis since last Friday and has been noticing nausea stools as well for 1 week. Patient stated that she was recently seen by GI doctor and had an EGD done at that time was consistent with minor bleeding along with gastritis. Patient was started on Protonix at that time. Patient also was recently seen by Cardiology about 4 weeks ago and was told she has severe peripheral artery disease and needs surgical intervention however patient has not been able to have a followup appointment. Patient has not been taking any aspirin or Plavix recently has stopped taking aspirin 1 week ago. Plavix has not been started yet. No other complications noted. No other complaints to offer at this time. Hospital Course: Overall during the hospital stay patient remained stable Patient was initially admitted to the hospital for GI bleed after she was found to have some hematemesis along with melanotic stool of the house. Her hemoglobin initially in the ER was found to be 6.2. Patient was transfused 2 units her in the hospital. GI was consulted who performed an EGD for the patient. Patient's EGD was consistent with nonbleeding small ulcers. Patient initially was started on IV Protonix ggt along with octerotide and was switched over to IV Protonix b.i.d. after the EGD. Patient was kept here in the hospital for close monitoring. Hemoglobin did remain stable after the transfusion. Patient at that time was transferred to the regular floor however before transfer to the floor patient was requesting IV pain medication. Patient was educated extensively several times regarding the need to continue on oral pain medication as prescribed by her pain management doctor which was [place] and [place]. Patient was offered to get extra dose of [place] as well to control her pain. Patient however insisted that she would like to get her IV pain medication and if not she will leave the hospital against medical advice. At that time patient was educated extensively on the side effects of narcotics and opioids and the need to continue taking medication as prescribed by her PCP and her pain management doctor. The patient stated that she would like to leave if no IV pain medication has been given. Patient was told that pain medication will not be given through IV at this time. Patient at that time requested for a another doctor to take over the care. The patient was again educated on the need to present her case to another doctor for the other doctor to have an effect. Patient at that time stated that she does not need any other doctor this would like to leave the hospital against medical advice. Patient left the hospital against medical advice and did not find any game a paper either. Vital Signs/Physical Exam: Temp Pulse Resp BP Pulse Ox 98.0 F 82 13 148/56 H 98 01/28/19 12:00 01/28/19 14:00 01/28/19 13:00 01/28/19 14:00 01/28/19 13:00 General: Alert, In no apparent distress HEENT: Atraumatic, PERRLA, EOMI Neck: Supple, JVD not distended Respiratory: Clear to auscultation bilaterally, Normal air movement Cardiovascular: Regular rate/rhythm, Normal S1 S2 Gastrointestinal: Normal bowel sounds, No tenderness Musculoskeletal: No tenderness Integumentary: No rashes Neurological: Normal speech, Normal tone, Normal affect Lymphatics: No axilla or inguinal lymphadenopathy Laboratory Data at Discharge: WBC 8.9 K/uL (4.3-10.9) 01/28/19 04:31 Hgb 7.9 g/dL (12.0-15.0) L* 01/28/19 04:31 Hct 23.9 % (36.0-45.0) L 01/28/19 04:31 Plt Count 151 K/uL (152-406) L 01/28/19 04:31 PT 11.4 SECONDS (9.5-12.5) 01/28/19 04:31 INR 0.96 01/28/19 04:31 APTT 32.8 SECONDS (24.3-36.9) 01/28/19 04:31 Sodium 141 mmol/L (136-145) 01/28/19 04:31 Potassium 4.0 mmol/L (3.5-5.1) 01/28/19 04:31 BUN 49 mg/dL (7-18) H D 01/28/19 04:31 Creatinine 3.46 mg/dL (0.55-1.3) H D 01/28/19 04:31 Glucose 180 mg/dL (74-106) H 01/28/19 04:31 Phosphorus 4.2 mg/dL (2.5-4.9) 01/28/19 04:31 Magnesium 1.9 mg/dL (1.8-2.4) 01/28/19 04:31 Total Bilirubin 0.5 mg/dL (0.2-1.0) 01/28/19 04:31 AST 12 U/L (15-37) L 01/28/19 04:31 ALT 10 U/L (12-78) L 01/28/19 04:31 Alkaline Phosphatase 75 U/L (45-117) 01/28/19 04:31 Lipase 103 U/L (73-393) 01/26/19 11:37 Home Medications: Acetaminophen [Tylenol Extra Strength] 500 mg PO Q6H PRN 01/26/19 Amlodipine [Norvasc] 10 mg PO DAILY 01/26/19 Clopidogrel Bisulfate [Plavix] 75 mg PO DAILY 01/26/19 Hydrocodone Bit/Acetaminophen [Hydrocodon-Acetaminophen 5-325] 1 each PO BID Isosorbide Mononitrate [Isosorbide Mononitrate ER] 30 mg PO DAILY 01/26/19 Magnesium Oxide [Magnesium] 500 mg PO BEDTIME 01/26/19 Metoprolol Tartrate [Lopressor] 25 mg PO BID 01/26/19 Omeprazole [Prilosec] 40 mg PO DAILY 01/26/19 Pregabalin [Lyrica] 50 mg PO TID 01/26/19
--- NOTE | 2019-01-28 18:45 | P.PN ---
Subjective Date of Service: 01/28/19 Primary Care Provider: Dr Weiss Chief Complaint: GI bleed, hematemesis, anemia Subjective: Improving (No GI bleeding today. History of chronic pain syndrome and insomnia. She has chronic constipation, possible IBS-C. She notes h/o insomnia.) Review of Systems 10-point ROS is otherwise unremarkable General: Weakness (Improved.) Gastrointestinal: Abdominal Pain Physical Examination - Vital Signs Temperature: 98.0 F Blood Pressure: 148/56 Pulse: 82 Respirations: 13 Pulse Ox (%): 98 - Physical Exam General: Alert, In no apparent distress, Oriented x3, Cooperative HEENT: Atraumatic, Normocephalic, PERRLA, EOMI Neck: Supple Respiratory: Normal air movement Cardiovascular: Normal pulses Gastrointestinal: Soft and benign, No rebound, No guarding, Tenderness ( generalized mild) Neurological: Normal speech, Normal strength at 5/5 x4 extr - Studies Medications List Reviewed: Yes Assessment And Plan - Current Problems (Diagnosis) (1) Hematemesis Status: Acute Comment: None today. Hemorrhagic gastritis noted on EGD yesterday, improved on PPI therapy. (2) Anemia Status: Acute (3) Combined abdominal and pelvic pain Onset Date: 10/09/16 Status: Acute (4) Upper GI bleed Status: Acute (5) Diabetes type 2, controlled Status: Chronic Qualifiers: Diabetes mellitus nursing home insulin use: with termite exterminator use Diabetes mellitus complication status: with circulatory complication Diabetes mellitus complication detail: with peripheral angiopathy without gangrene Qualified Code(s): E11.51 - Type 2 diabetes mellitus with diabetic peripheral angiopathy without gangrene; Z79.4 - termite exterminator (current) use of insulin (6) Fibromyalgia Status: Chronic (7) Intractable pain Onset Date: 10/09/16 Status: Chronic (8) Insomnia Status: Acute - Plan REC: 1) PPI bid 2) constipation therapy 3) fiber supplements, colace, Miralax tid 4) trial of Elavil 25 mg po qhs for 1 month 5) increase exercise efforts
[2019-01-28] MEDS ORDERED: PANTOPRAZOLE 40 MG INJ IVP SCH (21:00)
[2019-01-28] MEDS ORDERED: POLYETHYL GLY 3350 17 GM/DOSE PO SCH (21:00)
[2019-01-28] MEDS ORDERED: HYDROCODONE/APAP 5/325 MG TAB PO SCH (21:00)
[2019-01-28] MEDS ORDERED: AMITRIPTYLINE 25 MG TAB PO SCH (21:00)
[2019-01-28] MEDS ORDERED: METOPROLOL TAR 25 MG TAB PO SCH (21:00)
[2019-01-29] MEDS ORDERED: ISOSORBIDE MONO SR 30 MG TAB PO SCH (09:00)
[2019-01-29] MEDS ORDERED: AMLODIPINE 10 MG TAB PO SCH (09:00)
[2019-01-29] MEDS ORDERED: LACTOBACILLUS/ACIDOPHILUS TAB PO SCH (09:00)
--- NOTE | 2019-01-29 21:03 | ENDO RPT ---
[address], [address] EGD PROCEDURE REPORT EXAM DATE: 01/27/2019 PATIENT NAME: Marlene Floyd MR#: [id number] BIRTHDATE: 1965 ATTENDING: Dhruv Sloorzano Dr STATUS: inpatient - [facility] CHILD CARE TEACHER: Mary Cross RN and Christel Bajwa INDICATIONS: The patient is a 53 yr old Female here for an EGD due to upper G.I. bleeding, hematemesis, and anemia PROCEDURE PERFORMED: EGD with biopsy MEDICATIONS: Per Anesthesia. TOPICAL ANESTHETIC: none CONSENT: The patient understands the risks and benefits of the procedure and understands that these risks include, but are not limited to: sedation, allergic reaction, infection, perforation and/or bleeding. Alternative means of evaluation and treatment include, among others: physical exam, x-rays, and/or surgical intervention. The patient elects to proceed with this endoscopic procedure. DESCRIPTION OF PROCEDURE: During intra-op preparation period all mechanical medical equipment was checked for proper function. Hand hygiene and appropriate measures for infection prevention was taken. Procedure, possible complications, and alternatives including but not limited to the possibility of bleeding, perforation, tear, infection, sepsis, need for surgery, need for blood transfusion, and anesthesia related complications were explained to the patient. After the risks, benefits and alternatives of the procedure were thoroughly explained, Informed consent was verified, confirmed and timeout was successfully executed by the treatment team. The patient was placed in the left lateral position. The patient was anesthetized with topical anesthesia. Through the anesthetized oropharyngeal area, the scope was passed without any difficulty. The Pentax EG-[id number] ([id number]) endoscope was introduced through the mouth and advanced to the second portion of the duodenum. Retroflexed views revealed no abnormalities. The gastroscope was then slowly withdrawn and removed. A 4 mm linear clean-based deep ulcer was found in the antrum. Mild gastritis was found in the antrum. Multiple biopsies were obtained and sent to pathology. Moderate gastritis was found in the body of the stomach. ADVERSE EVENTS: There were no complications. IMPRESSIONS: 1. 4 mm clean-based linear deep ulcer in the antrum, probable source of recent GI bleeding - improving on PPI therapy 2. Mild gastritis in the antrum, s/p biopsies 3. Moderate focal 1 cm area of gastritis in the body of the stomach RECOMMENDATIONS: 1. await biopsy results 2. acid suppression therapy REPEAT EXAM: Dhruv Solorzano Dr eSigned: Dhruv Solorzano Dr 01/27/2019 12:15 PM cc: CPT CODES: ICD9 CODES: PATIENT NAME: Everett Marlene TimMarii MR#: [id number]
== END 2019-01-28 14:00 | disposition left against medical advice (07) | DRG 377 ==
LOC: ER 10:12 → 3RD-ICU 16:20
PROVIDERS: ADMIT Family Medicine; ATTEND Family Medicine
PROC: 30233N1 Transfusion of Nonautologous Red Blood Cells into Peripheral Vein, Percutaneous Approach (ICD-10-PCS; 2019-01-26)
PROC: 0DB78ZX Excision of Stomach, Pylorus, Via Natural or Artificial Opening Endoscopic, Diagnostic (ICD-10-PCS; 2019-01-27)
PROC: 5A1D70Z Performance of Urinary Filtration, Intermittent, Less than 6 Hours Per Day (ICD-10-PCS; principal; 2019-01-27 11:30)
DX: K92.2 Gastrointestinal hemorrhage, unspecified (principal); N18.6 End stage renal disease; I12.0 Hypertensive chronic kidney disease with stage 5 chronic kidney disease or end stage renal disease; E11.51 Type 2 diabetes mellitus with diabetic peripheral angiopathy without gangrene; Z79.4 Long term (current) use of insulin; M79.7 Fibromyalgia; E11.22 Type 2 diabetes mellitus with diabetic chronic kidney disease; Z99.2 Dependence on renal dialysis; K25.9 Gastric ulcer, unspecified as acute or chronic, without hemorrhage or perforation; I25.10 Atherosclerotic heart disease of native coronary artery without angina pectoris; N25.0 Renal osteodystrophy; G89.4 Chronic pain syndrome; G47.00 Insomnia, unspecified; K29.70 Gastritis, unspecified, without bleeding
CPT/HCPCS: 36415; 36430; 71250; 80048; 80053; 80076; 81003; 81015; 82962; 83690; 83735; 84100; 85025; 85610; 85730; 86850; 86900; 86901; 87086; 87088; 88305; 88312; 90935; 93005; 94760; 96374; 96375; 99285; C9113; J0171; J1170; J2001; J2270; J2405; J2704; P9016